=== PATIENT | female | born 1960 | race Caucasian/White ===

== ENCOUNTER → 2017-10-13 16:23 | Outpatient (REF) | payer OTHER, MEDICARE, SELFPAY ==
[2017-10-13 16:35] LABS: Basophils % 0.5 % (0.1-2.0); Eosinophils # 0.3 K/mm3 (0.0-0.4); Eosinophils % 3.5 % (0.1-12.0); Hematocrit 41.8 % (37.0-47.0); Hemoglobin 14.2 g/dL (12.2-16.2); Lymphocytes # 2.4 K/mm3 (0.7-4.5); Lymphocytes % 31.9 K/mm3 (10-50); Mean Corpuscular Hemoglobin 28.4 pg (27.0-31.2); Mean Corpuscular Volume 83.6 fl (81-99); Mean Platelet Volume 6.9 fl (7.4-10.4); Monocytes # 0.6 K/mm3 (0.1-1.0); Monocytes % 8.6 % (1.7-9.3); Neutrophils # 4.1 K/mm3 (1.8-7.8); Neutrophils % 55.5 % (37.0-80.0); Platelet Count 367 K/mm3 (142-424); Red Cell Distribution Width 13.2 % (11.5-17.5); White Blood Count 7.3 K/mm3 (4.8-10.8)
[2017-10-13 20:07] LABS: Alanine Aminotransferase 49 U/L (12-78); Albumin Level 3.6 gm/dL (3.4-5.0); Alkaline Phosphatase 108 U/L (46-116); Anion Gap 13.5 mEq/L (5-15); Aspartate Amino Transferase 22 U/L (15-37); Bilirubin,Total 0.7 mg/dL (0.2-1.0); Blood Urea Nitrogen 11 mg/dL (7-18); Calcium 9.3 mg/dL (8.5-10.1); Carbon Dioxide 27 mmol/L (21.0-32.0); Chloride 105 mmol/L (98-107); Estimated Glomerular Filt Rate 57 ml/min (>60); GFR (African American) 69 ML/MIN (>60); Globulin 3.7 gm/dl (1.3-3.2); Glucose 96 mg/dL (74-106); Potassium 4.5 mmoL/L (3.5-5.1); Sodium 141 mmol/L (136-145); Thyroid Stimulating Hormone 3.29 uIU/ml (0.358-3.740); Total Protein,Serum 7.3 gm/dL (6.4-8.2)
== END ==
LOC: LAB 16:23
PROVIDERS: Visit Provider Internal Medicine
DX: E03.9 Hypothyroidism, unspecified (principal); E55.9 Vitamin D deficiency, unspecified; E78.5 Hyperlipidemia, unspecified; M15.0 Primary generalized (osteo)arthritis; M79.7 Fibromyalgia; R25.1 Tremor, unspecified
CPT/HCPCS: 80053; 84443; 85025

== ENCOUNTER 2020-07-03 12:39 | Emergency (ER) | payer MEDICARE, OTHER, SELFPAY ==
[2020-07-03 12:40] VITALS: BP 128/54; PULSE 62; RESP 15; TEMP 37.1; O2SAT 97; BMI 39.0
--- NOTE | 2020-07-03 12:45 | ECG_ITS ---
APPROVED REPORT Exam: Resting ECG HR:67 bpm ECG Measurements Heart Rate 67 AXES RI 174 P 37 QRSd 86 QRS 23 QT 416 T 25 QTc 439 Conclusion Normal sinus rhythm Low voltage QRS Borderline ECG Electronically signed by : Carlos Eduardo Willingham, 07/03/2020 16:55:44
--- NOTE | 2020-07-03 12:53 | HMH.EDGENADL ---
ED Disposition Clinical Impression: Vasovagal syncope Disposition: Home, Self-Care Condition on Discharge: Good Instructions: DI for Syncope in Adults (Fainting) Additional Instructions: Follow-up with primary care provider. Call for appointment. Return to the emergency department if fainting returns. Referrals: Kaveh Jones [Primary Care Provider] - - Critical Care Critical Care Time: No Attestation: On , the high probability of a clinically significant, sudden or life threatening deterioration of the following system(s) required my full and direct attention, intervention and personal management. The time I documented below is in addition to time spent performing reported procedures but includes the following listed in this critical care notation. Medical Decision Making - Tutu Inquiry Pt receiving controlled substance: No Vital Signs: 07/03/20 12:40 Temperature 98.8 F Temperature Source Oral Pulse Rate [Left Radial] 62 Respiratory Rate 15 Blood Pressure [Right Arm] 128/54 L Blood Pressure Mean [Right Arm] 78 Blood Pressure Source [Right Arm] Automatic Cuff Blood Pressure Position [Right Arm] Sitting 02 Sat by Pulse Oximetry 97 Oxygen Delivery Method Room Air - Lab Data Lab Results 07/03/20 12:51: WBC 8.8, RBC 4.89, Hgb 14.1, Hct 42.0, MCV 85.8, MCH 28.9, MCHC 33.7, RDW 13.5, Plt Count 392, MPV 7.5, Neut % (Auto) 61.5, Lymph % (Auto) 26.8, [place] % (Auto) 7.9, Eos % (Auto) 3.1, Baso % (Auto) 0.6, Neut # (Auto) 5.4, Lymph # (Auto) 2.4, [place] # (Auto) 0.7, Eos # (Auto) 0.3, Baso # (Auto) 0.1 07/03/20 12:51: Sodium 138, Potassium 3.7, Chloride 103, Carbon Dioxide 27, Anion Gap 11.7, BUN 11, Creatinine 1.00, Estimated Creat Clear 104, Estimated GFR 57 L, Est GFR ( Amer) 68, Glucose 124 H, Calcium 9.5, Total Bilirubin 0.7, AST 32, ALT 27, Alkaline Phosphatase 80, Troponin I < 0.01, Total Protein 7.5, Albumin 4.7, Globulin 2.8, Albumin/Globulin Ratio 1.7 Result diagrams: 07/03/20 12:51 07/03/20 12:51 Orders (Tests/Meds): ORDERS Category Date Time Status Troponin I Q3H Lab 07/03/20 16:30 Ordered Troponin I Q3H Lab 07/03/20 19:30 Ordered - Radiology Data #1 Image(s): Chest Image Reviewed: Yes I have reviewed radiologist's interpretation PROCEDURE: XR CHEST 2V CLINICAL HISTORY: syncope COMPARISON: No exams were available for comparison FINDINGS: The cardiomediastinal silhouette and pulmonary vascularity are within normal limits. There are mild atelectatic changes in the lung bases. No acute bony abnormalities. IMPRESSION: Mild bibasilar atelectasis. Dictated by: Jorge Carlton MD 07/03/2020 14:39 Jorge Carlton MD in [place] 07/03/2020 14:39 - ECG Data Tracing #1 EKG interpreted by Odell Dupont MD: Rhythm: sinus Rate: 67 [place]: normal Ectopy: none Conduction: normal ST Segment Changes: none T Wave Changes: none Q Waves: none No evidence of acute ischemia or injury Low voltage QRS - Reevaluation(s) Time: 15:18 Reevaluation #1: Feels fine, ready to be discharged General Adult HPI - General Stated complaint: syncope Time Seen by Provider: 07/03/20 12:53 - History of Present Illness HPI narrative: Brought over from Dr. Cordoba's office for syncopal episode. The patient was there with her , who was being seen as a patient, when she began feeling hot and sweaty. She said she knows what it feels like when she is going to pass out because she has been in so many times. However, she has not had a syncopal episode for about 15 years. Her says that she passed out and was unconscious for 2 to 3 minutes. Has not recently been ill. Awakened this morning in her usual state of health. No new medications. No chest pain, no shortness of breath. States she is under a lot of stress because her recently had a stroke and now is going to have something done with his heart. - Related Data Allergies Allergy/Ad
--- NOTE | 2020-07-03 13:26 | XR_ITS ---
PROCEDURE: XR CHEST 2V CLINICAL HISTORY: syncope COMPARISON: No exams were available for comparison FINDINGS: The cardiomediastinal silhouette and pulmonary vascularity are within normal limits. There are mild atelectatic changes in the lung bases. No acute bony abnormalities. IMPRESSION: Mild bibasilar atelectasis. Dictated by: Jorge Carlton MD 07/03/2020 14:39 Jorge Carlton MD in [facility] 07/03/2020 14:39
[2020-07-03 13:32] LABS: Basophils # 0.1 K/mm3 (0-0.2); Basophils % 0.6 % (0.1-2.0); Eosinophils # 0.3 K/mm3 (0.0-0.4); Eosinophils % 3.1 % (0.1-12.0); Hemoglobin 14.1 g/dL (12.2-16.2); Lymphocytes # 2.4 K/mm3 (0.7-4.5); Lymphocytes % 26.8 % (10-50); Mean Corpuscular HGB Conc 33.7 g/dL (31.8-35.4); Mean Corpuscular Hemoglobin 28.9 pg (27.0-31.2); Mean Corpuscular Volume 85.8 fl (81-99); Mean Platelet Volume 7.5 fl (7.4-10.4); Monocytes # 0.7 K/mm3 (0.1-1.0); Monocytes % 7.9 % (1.7-9.3); Neutrophils # 5.4 K/mm3 (1.8-7.8); Neutrophils % 61.5 % (37.0-80.0); Platelet Count 392 K/mm3 (142-424); Red Blood Count 4.89 M/mm3 (4.20-5.40); Red Cell Distribution Width 13.5 % (11.5-17.5); White Blood Count 8.8 K/mm3 (4.8-10.8)
[2020-07-03 13:34] LABS: Chloride 103 mmol/L (98-107); Sodium 138 mmol/L (136-145)
[2020-07-03 13:35] LABS: Potassium 3.7 mmoL/L (3.5-5.1)
[2020-07-03 13:37] LABS: Alanine Aminotransferase 27 U/L (12-78); Albumin Level 4.7 g/dl (3.5-5.0); Albumin/Globulin Ratio 1.7 (1.1-1.8); Alkaline Phosphatase 80 U/L (38-126); Anion Gap 11.7 mEq/L (5-15); Aspartate Amino Transferase 32 U/L (14-36); Bilirubin,Total 0.7 mg/dl (0.2-1.3); Blood Urea Nitrogen 11 mg/dl (7-17); Carbon Dioxide 27 mmol/L (22.0-30.0); Creatinine Clearance Estimated 104 mL/min (50-200); Estimated Glomerular Filt Rate 57 ml/min (>60); GFR (African American) 68 ML/MIN (>60); Globulin 2.8 g/dL (1.3-3.2); Total Protein,Serum 7.5 g/dl (6.3-8.2)
[2020-07-03 13:38] LABS: Calcium 9.5 mg/dl (8.4-10.2); Glucose 124 mg/dl (74-100)
[2020-07-03 13:55] LABS: Troponin I < 0.01 ng/ml (0.00-0.034)
[2020-07-03 16:06] VITALS: BP 139/78; PULSE 78; RESP 16; TEMP 36.6; O2SAT 98
== END 2020-07-03 16:08 | disposition home or self-care (01) ==
PROVIDERS: Emergency Provider Emergency Medicine; PCP Internal Medicine
DX: R55 Syncope and collapse (principal)
CPT/HCPCS: 71046; 80053; 84484; 85025; 93005; 99282

== ENCOUNTER → 2020-07-22 15:17 | Outpatient (CLI) | payer MEDICARE, OTHER, SELFPAY | PROVIDERS: PCP Internal Medicine; Visit Provider Internal Medicine | DX: R55 Syncope and collapse (principal) | CPT/HCPCS: 93225; 93226 ==

== ENCOUNTER → 2020-07-23 07:58 | Outpatient (CLI) | payer MEDICARE, OTHER, SELFPAY ==
--- NOTE | 2020-07-23 | CA_ITS ---
APPROVED REPORT EXAM: Comprehensive 2D, Doppler, and color-flow Echocardiogram Chief Environmental Commitment Officer: Nia Galarza RT(R) Ht: 5 ft 6 in Wt: 240lbs BSA: 2.16 BP: 128/54 mmHg Indications: Syncope, CP, murmur, fatigue, left LE edema, SOB, obesity 2D Dimensions LVOT 1.93 cm (M/F) 1.5-2.5 LA Volume 26.70 mL LA Volume Index 12.36 mL/m2 (M/F) 16-34 M-Mode Dimensions RVDd 2.10 cm (0.9-2.6) LA Diam 3.41 cm (1.9-4.0) LVDd 4.37 cm (3.5-5.7) Ao Diam 2.02 cm (2.0-3.7) LVDs 3.12 cm (3.5-5.7) IVSd 0.98 cm (0.6-1.1) PWd 0.76 cm (0.6-1.1) EF (Teich) 55.40% FS 28.60% EDV (Teich) 86.30 mL ESV (Teich) 38.50 mL LV Diastology E Decel Time 167.00 (160-240 msec) E/A Ratio 1.2 MED E' 8.10 (< 7 cm/sec) E'/MED E' Ratio 10.81 (>14) LAT E' 10.00 (<10 cm/sec) E/LAT E' Ratio 8.76 (>14) Mitral Valve MV E Max Ghanshyam. 88.00 (40-130 cm/s) MV A Velocity 73.00 (40-130 cm/s) E/A Ratio 1.19 MV Decel. Time 167.00 (160-240 ms) MV PHT 49.00 ms Left Ventricle Left atrium is mildly enlarged, left ventricle is normal size, mild concentric left ventricular hypertrophy, visually estimated ejection fraction 55% with no regional wall motion abnormality, grade 1 diastolic dysfunction seen without tissue Doppler evidence of raise left atrial pressure. Right Ventricle Right atrium and right ventricle are mildly enlarged with normal contractility. Aortic Valve Aortic valve is minimally thickened and fibrosed, there is no aortic stenosis or aortic insufficiency. Mitral Valve Mitral valve is grossly normal, there is mild mitral regurgitation. Tricuspid Valve Tricuspid grossly normal, there is mild tricuspid regurgitation, tricuspid regurgitation jet velocity is inadequate for calculation of the right ventricular systolic pressure. Pulmonic Valve Pulmonic valve is poorly visualized. Great Vessels Aortic root is normal size. Pericardium No significant pericardial effusion noted. Conclusion 1. Biatrial enlargement, normal left ventricular size, mild concentric left ventricular hypertrophy, visually estimated ejection fraction 55% with no regional wall motion abnormality, grade 1 diastolic dysfunction seen without tissue Doppler evidence of raise left atrial pressure. 2. Mildly enlarged right ventricle with normal contractility. 3. Mild mitral and tricuspid regurgitation. 4. No significant pericardial effusion noted. Electronically signed by : Clint Mejia, 07/23/2020 19:00:55
== END ==
PROVIDERS: PCP Internal Medicine; Visit Provider Internal Medicine
DX: R55 Syncope and collapse (principal)
CPT/HCPCS: 93306

== ENCOUNTER → 2020-12-30 09:41 | Outpatient (CLI) | payer MEDICARE, OTHER, SELFPAY ==
[2020-12-30 18:30] LABS: Basophils % 0.5 % (0.1-2.0); Eosinophils # 0.2 K/mm3 (0.0-0.4); Eosinophils % 2.6 % (0.1-12.0); Hematocrit 43.2 % (37.0-47.0); Lymphocytes # 2.1 K/mm3 (0.7-4.5); Lymphocytes % 25.1 % (10-50); Mean Corpuscular HGB Conc 32.4 g/dL (31.8-35.4); Mean Corpuscular Hemoglobin 29.9 pg (27.0-31.2); Mean Corpuscular Volume 92.2 fl (81-99); Mean Platelet Volume 9.2 fl (7.4-10.4); Monocytes # 0.6 K/mm3 (0.1-1.0); Monocytes % 7.4 % (1.7-9.3); Neutrophils # 5.4 K/mm3 (1.8-7.8); Neutrophils % 64.4 % (37.0-80.0); Platelet Count 394 K/mm3 (142-424); Red Blood Count 4.69 M/mm3 (4.20-5.40); Red Cell Distribution Width 13.6 % (11.5-17.5); White Blood Count 8.3 K/mm3 (4.8-10.8)
[2020-12-30 20:40] LABS: Chloride 101 mmol/L (98-107); Potassium 4.2 mmoL/L (3.5-5.1); Sodium 141 mmol/L (136-145)
[2020-12-30 20:43] LABS: Alanine Aminotransferase 14 U/L (12-78); Albumin Level 4.1 g/dl (3.5-5.0); Albumin/Globulin Ratio 1.2 (1.1-1.8); Alkaline Phosphatase 108 U/L (38-126); Anion Gap 14.2 mEq/L (5-15); Aspartate Amino Transferase 23 U/L (14-36); Bilirubin,Total 0.5 mg/dl (0.2-1.3); Blood Urea Nitrogen 11 mg/dl (7-17); Calcium 9.1 mg/dl (8.4-10.2); Carbon Dioxide 30 mmol/L (22.0-30.0); Chol/HDL Ratio 4.1 (1-3.5); Cholesterol 230 mg/dl (140-200); Estimated Glomerular Filt Rate 64 ml/min (>60); GFR (African American) 77 ML/MIN (>60); Globulin 3.3 g/dL (1.3-3.2); Glucose 64 mg/dl (74-100); HDL Cholesterol 56 mg/dl (40-60); Total Protein,Serum 7.4 g/dl (6.3-8.2); Triglycerides 62 mg/dl (30-150); VLDL Cholesterol 12 mg/dL (0-40)
[2020-12-30 20:56] LABS: Direct LDL Cholesterol 152.59 mg/dL (100-129)
== END ==
PROVIDERS: PCP Internal Medicine; Visit Provider Internal Medicine
DX: R07.9 Chest pain, unspecified (principal); E03.9 Hypothyroidism, unspecified; E78.5 Hyperlipidemia, unspecified; E55.9 Vitamin D deficiency, unspecified; K22.70 Barrett's esophagus without dysplasia; M79.7 Fibromyalgia
CPT/HCPCS: 80053; 80061; 84443; 85025; 93005

== ENCOUNTER → 2021-01-22 12:14 | Outpatient (CLI) | payer MEDICARE, OTHER, SELFPAY ==
--- NOTE | 2021-01-22 | CA_ITS ---
APPROVED REPORT Exam: Pharmacologic Technologist: Lorena White Ht: 5 ft 6 in Wt: 238 lbs BSA: 2.15 m2 HR: 65 bpm BP: 140/91 mmHg Indications: Chest pain, dizziness, syncope Medical History Medications: Propranolol,,,,, Pantoprazole,,,,, MoRPHINE,,,,, Cyclobenzaprine,,,,, Nitroglycerin,,,,, Lysine,,,,, Stress Test Details Test: LEXISCAN HR Resting HR: 63 bpm Max Heart Rate (APMHR): 159 bpm Max HR Achieved: 90 bpm Target HR (85% APMHR): 135 bpm % of APMHR: 56 Recovery HR: 73 bpm BP Resting BP: 140.0/91.0 mmHg Max BP: 140.0/91.0 mmHg Recovery BP: 115.0/73.0 mmHg ECG Resting ECG: Normal sinus rhythm, low voltage QRS Clinical Exercise duration: 04:00 min Highest Stage Achieved: Stress ECG Conclusion Symptoms: Shortness of air, stomach cramps. No chest pain Arrhythmias/Ectopy: Transient episode of wide complex rhythm at 60 bpm, probable AIVR. ST-T Changes: No significant changes. Conclusion: AIVR during Lexiscan stress that may be ischemic related. Myoview images reported separately. Electronically signed by : Clint Mejia MD 01/22/2021 20:09:34
--- NOTE | 2021-01-22 12:14 | NM_ITS ---
APPROVED REPORT Exam: Nuclear Stress Test Indication: Chest pain, SOB, Palpitations, Syncope, Family history Patient Location: Outpatient Stress Tech: Lorena White NM Tech:Sarahy Key, ARRT, RT (R)(N) Ht: 5 ft 6 in Wt: 234 lbs Bra Size: C HR: 63 bpm BP: 140/91 mmHg BSA: 2.14 m2 BMI: 37.7 History: Chest pain, SOB, Palpitations, Syncope, Family history Procedure: Patient received a 0.4 mg of intravenous Lexiscan, resting heart rate 63 bpm, resting blood pressure 140/91 mmHg, with Lexiscan maximum heart rate achived was 90 bpm which is Less than 85 % of the maximum predicted heart rate and blood pressure was 140/91 mmHg. With Lexiscan, patient denied any complaint of chest pain. Electrocardiogram Resting electrocardiogram shows sinus rhythm, with Lexiscan there is less than 1.[address] segment depression noted from the baseline EKG. The EKG portion of Lexiscan is nondiagnostic. Cardiac Stress and Resting SPECT Images: Cardiac Stress and Resting SPECT images were obtained using technetium 99m Myoview 32.1 mCi stress and 10.44 mCi at rest. Gated SPECT for analysis of segmental wall motion and calculation of the ejection fraction also done. Cardiac stress and resting SPECT images show uniform myocardial activity without segmental perfusion abnormality, computer ejection fraction is over 65% with no regional wall motion abnormality, however there is transient ischemic dilatation of the left ventricle seen. Conclusion: 1. The EKG portion of the Lexiscan Myoview is nondiagnostic. 2. No scintigraphic evidence of reversible ischemia seen, computer derived ejection fraction is over 65% with no regional wall motion abnormality, right ventricle is normal size and contractility, there is transient ischemic dilatation of the left ventricle seen, raising the concerns for presence of balanced ischemia, other causes for transient ischemic dilatation includes hypertensive heart disease, diastolic dysfunction, microvascular disease and diabetes. Clinical correlation is recommended. 3. Abnormal Lexiscan Myoview study. Electronically signed by : Clint Mejia MD 01/22/2021 21:55:28
--- NOTE | 2021-01-22 14:01 | HMH.ITSHM ---
Current Home Medications as stated by this patient Maria Del Rosario Florian or development representative. []PROPRANOLOL PANTOPRAZOLE NITRO MORPHINE LYSINE CYCLOBENZAPRINE
== END ==
PROVIDERS: PCP Internal Medicine; Visit Provider Urology
DX: M54.9 Dorsalgia, unspecified (principal); R00.2 Palpitations; R07.89 Other chest pain; R55 Syncope and collapse; Z82.49 Family history of ischemic heart disease and other diseases of the circulatory system
CPT/HCPCS: 78452; 93017; A9502; J2785

== ENCOUNTER → 2021-02-06 07:01 | Outpatient (CLI) | payer MEDICARE, OTHER, SELFPAY ==
--- NOTE | 2021-02-06 07:31 | CT_ITS ---
PROCEDURE: CT ANGIO CORONARY ARTERY CLINCAL INDICATION: typical angina/abnl myoview COMPARISON: No exams were available for comparison TECHNIQUE: IV Contrast: 75ml Isovue 370 Gated enhanced axial images obtained with sagittal and coronal reformats. All CT scans at the facility use one or more dose reduction, viz: automated exposure control, ma/kV adjustment per patient size (including targeted exams where dose is matched to indication, i.e. head), or iterative reconstruction technique. The the patient's resting heart rate was in the mid 60s therefore, no medication bradycardia was utilized. FINDINGS: Coronary artery calcium score is 53 indicating mild plaque burden with moderate cardiovascular disease risk. There is some mild motion artifact somewhat obscuring fine detail mid and distal vessels. Left main coronary artery has an unremarkable appearance. There is a small amount of eccentric calcific plaque involving the LAD just distal to the 1st diagonal this does not appear to be causing significant stenosis. Eccentric calcific plaque is also present involving the proximal aspect of the circumflex with less than 50 percent stenosis. There does appear to be an irregular stenotic lesion just distal to the ostium of the RCA. This is somewhat difficult to determine the degree of stenosis but is felt to be greater than 50 percent.. The area of stenosis is shelf-like in nature. There are mild atelectatic or fibrotic changes in the lung bases. There is a small hiatal hernia. IMPRESSION: 1. Eccentric plaque involving the mid LAD and proximal circumflex without significant stenosis. 2. Short segment stenosis involving the proximal aspect of the RCA just distal to the ostium. This stenosis is felt to be greater than 50 percent. 3. Mild calcific plaque burden with moderate cardiovascular disease risk 4. Small hiatal hernia Dictated by: Jorge Carlton MD 02/10/2021 09:56 Jorge Carlton MD in [facility] 02/10/2021 09:56
[2021-02-06 08:16] VITALS: BMI 38.0
[2021-02-06 08:36] LABS: Blood Urea Nitrogen 10 mg/dl (7-17); Creatinine Clearance Estimated 100 mL/min (50-200); Estimated Glomerular Filt Rate 56 ml/min (>60); GFR (African American) 68 ML/MIN (>60)
== END ==
PROVIDERS: PCP Internal Medicine; Visit Provider Physician Assistant
DX: I20.9 Angina pectoris, unspecified (principal); R07.9 Chest pain, unspecified; R94.30 Abnormal result of cardiovascular function study, unspecified
CPT/HCPCS: 75574; 82565; 84520; Q9967

== ENCOUNTER → 2021-02-18 08:32 | Outpatient (CLI) | payer MEDICARE, OTHER, SELFPAY ==
[2021-02-18 08:58] LABS: Basophils # 0.1 K/mm3 (0-0.2); Basophils % 0.7 % (0.1-2.0); Eosinophils # 0.4 K/mm3 (0.0-0.4); Eosinophils % 3.8 % (0.1-12.0); Hematocrit 42.5 % (37.0-47.0); Hemoglobin 14.7 g/dL (12.2-16.2); Lymphocytes # 2.6 K/mm3 (0.7-4.5); Lymphocytes % 29.2 % (10-50); Mean Corpuscular HGB Conc 34.5 g/dL (31.8-35.4); Mean Corpuscular Hemoglobin 30.1 pg (27.0-31.2); Mean Corpuscular Volume 87.2 fl (81-99); Mean Platelet Volume 7.7 fl (7.4-10.4); Monocytes # 0.9 K/mm3 (0.1-1.0); Monocytes % 9.5 % (1.7-9.3); Neutrophils # 5.1 K/mm3 (1.8-7.8); Neutrophils % 56.8 % (37.0-80.0); Platelet Count 351 K/mm3 (142-424); Red Blood Count 4.87 M/mm3 (4.20-5.40); Red Cell Distribution Width 12.8 % (11.5-17.5)
[2021-02-18 10:36] LABS: Chloride 102 mmol/L (98-107); Sodium 140 mmol/L (136-145)
[2021-02-18 10:39] LABS: Blood Urea Nitrogen 14 mg/dl (7-17); Calcium 9.1 mg/dl (8.4-10.2); Carbon Dioxide 29 mmol/L (22.0-30.0); Estimated Glomerular Filt Rate 56 ml/min (>60); GFR (African American) 68 ML/MIN (>60); Glucose 82 mg/dl (74-100)
== END ==
PROVIDERS: Visit Provider Physician Assistant
DX: I20.8 Other forms of angina pectoris (principal); M54.9 Dorsalgia, unspecified; R00.2 Palpitations; R07.9 Chest pain, unspecified; R55 Syncope and collapse; Z82.49 Family history of ischemic heart disease and other diseases of the circulatory system; Z01.812 Encounter for preprocedural laboratory examination; Z11.52 Encounter for screening for COVID-19
CPT/HCPCS: 36415; 80048; 85025; C9803; U0003; U0005

== ENCOUNTER 2021-02-19 09:04 | Day surgery (SDC) | payer MEDICARE, OTHER, SELFPAY ==
[2021-02-19] VITALS (13 sets, daily range): BP systolic 97–135; BP diastolic 60–75; PULSE 59–81; RESP 12–18; TEMP 36.6–36.7; O2SAT 93–99; BMI 38.2
--- NOTE | 2021-02-19 07:06 | IR_ITS ---
APPROVED REPORT Patient Location: Outpatient Tractor Operator: MART Hayden RT (R) PROCEDURES Left heart catheterization Left ventriculogram Selective coronary angiogram INDICATION Coronary artery disease, Abnormal CAT scan with right coronary stenosis Informed consent was obtained prior to the procedure. COMPLICATIONS NONE Estimated Blood Loss: LESS THAN 10 ML TECHNIQUE One percent lidocaine used to anesthetize the right anterior aspect of the wrist. The right radial artery was accessed via the Seldinger technique. A 6 Burmese sheath was placed in the right radial artery. 2.5 mg of verapamil, 800 mcg of nitroglycerin, 1mg Lidocaine and 5000 U Heparin were given through the arterial sheath. The Poppa catheter was also used to perform left heart catheterization, left ventriculogram and selective coronary angiogram. At the end of the procedure the sheath was removed good hemostasis was achieved using Traclet band, patient was transferred to the postop holding area in stable condition. ANGIOGRAPHIC RESULTS The left main artery Normal The left anterior descending artery Mild diffuse 10% luminal irregularities The circumflex artery Mild diffuse 10% luminal irregularities The right coronary artery Dominant mild 10% luminal irregularities The ABBOTT ventriculogram reveals Normal 65% The left ventricular end-diastolic pressure 15 mmHg IMPRESSION Mild nonflow limiting occlusive disease Normal ejection fraction Borderline LVEDP PLAN 1. Medical management Electronically signed by : Castro Cordoba MD 02/19/2021 11:10:19
== END 2021-02-19 15:04 | disposition home or self-care (01) ==
LOC: CATHLAB 09:06
PROVIDERS: PCP Internal Medicine; Visit Provider Internal Medicine
DX: I25.118 Atherosclerotic heart disease of native coronary artery with other forms of angina pectoris (principal); R07.9 Chest pain, unspecified; R55 Syncope and collapse; Z82.49 Family history of ischemic heart disease and other diseases of the circulatory system; E03.9 Hypothyroidism, unspecified
CPT/HCPCS: 93458; 99152; C1725; C1769; J1644; Q9967

== ENCOUNTER → 2021-03-05 13:00 | Outpatient (CLI) | payer MEDICARE, OTHER, SELFPAY ==
[2021-03-05 14:59] LABS: Thyroid Stimulating Hormone 2.68 uIU/mL (0.465-4.68)
== END ==
PROVIDERS: Visit Provider Internal Medicine
DX: E03.9 Hypothyroidism, unspecified (principal); M15.0 Primary generalized (osteo)arthritis; M79.7 Fibromyalgia; K22.70 Barrett's esophagus without dysplasia; E55.9 Vitamin D deficiency, unspecified
CPT/HCPCS: 84443

== ENCOUNTER → 2021-06-11 16:24 | Outpatient (CLI) | payer MEDICARE, OTHER, SELFPAY ==
--- NOTE | 2021-06-11 | CA_ITS ---
FINAL REPORT TECHNIQUE: Ultrasound images of the deep venous system were obtained from the left groin to the calf veins. CLINICAL HISTORY: HTN, HLD, edema x 4 months in medial ankle area, pain has been in distal calf and extending up to medial knee since 06/08/21. Denies trauma. FINDINGS: The deep venous system is normally compressible. Normal flow is identified. IMPRESSION: No evidence of left lower extremity DVT. Reviewed, Interpreted and Dictated by Tho Lemon MD Transcribed by Betty Wan Authenticated by Tho Lemon MD on 06/12/2021 08:48:03 AM [facility]
== END ==
PROVIDERS: PCP Internal Medicine; Visit Provider Internal Medicine
DX: M79.605 Pain in left leg (principal); M79.89 Other specified soft tissue disorders
CPT/HCPCS: 93971

== ENCOUNTER → 2021-10-07 11:42 | Outpatient (CLI) | payer MEDICARE, OTHER, SELFPAY ==
--- NOTE | 2021-10-07 11:47 | XR_ITS ---
FINAL REPORT CLINICAL HISTORY: LEFT FOOT PAIN, bruising, no known injury FINDINGS: Left foot Three views were obtained. There is no acute fracture or dislocation. There is a small plantar calcaneal spur. Mild degenerative changes are present. No soft tissue abnormality is identified. IMPRESSION: No acute process. Reviewed, Interpreted and Dictated by Drew Oreilly III, MD Transcribed by Betty Wan Authenticated and [facility]
== END ==
PROVIDERS: PCP Internal Medicine; Visit Provider Internal Medicine
DX: M79.672 Pain in left foot (principal)
CPT/HCPCS: 73630

== ENCOUNTER → 2022-03-03 16:42 | Outpatient (CLI) | payer MEDICARE, OTHER, SELFPAY ==
[2022-03-03 17:34] LABS: Basophils # 0.1 K/mm3 (0-0.2); Basophils % 0.7 % (0.1-2.0); Eosinophils # 0.2 K/mm3 (0.0-0.4); Eosinophils % 2.2 % (0.1-12.0); Hematocrit 39.8 % (37.0-47.0); Hemoglobin 13.5 g/dL (12.2-16.2); Lymphocytes # 1.8 K/mm3 (0.7-4.5); Lymphocytes % 26.3 % (10-50); Mean Corpuscular HGB Conc 33.9 g/dL (31.8-35.4); Mean Corpuscular Hemoglobin 29.5 pg (27.0-31.2); Mean Corpuscular Volume 87.2 fl (81-99); Mean Platelet Volume 8.4 fl (7.4-10.4); Monocytes # 0.5 K/mm3 (0.1-1.0); Neutrophils # 4.3 K/mm3 (1.8-7.8); Neutrophils % 62.9 % (37.0-80.0); Platelet Count 353 K/mm3 (142-424); Red Blood Count 4.56 M/mm3 (4.20-5.40); Red Cell Distribution Width 13.1 % (11.5-17.5); White Blood Count 6.8 K/mm3 (4.8-10.8)
[2022-03-03 19:06] LABS: Alanine Aminotransferase 22 U/L (12-78); Albumin Level 4.3 g/dl (3.5-5.0); Albumin/Globulin Ratio 1.6 (1.1-1.8); Alkaline Phosphatase 99 U/L (38-126); Anion Gap 13.1 mEq/L (5-15); Aspartate Amino Transferase 29 U/L (14-36); Bilirubin,Total 0.7 mg/dl (0.2-1.3); Blood Urea Nitrogen 17 mg/dl (7-17); Calcium 9.2 mg/dl (8.4-10.2); Carbon Dioxide 27 mmol/L (22.0-30.0); Chloride 104 mmol/L (98-107); Chol/HDL Ratio 3.3 (1-3.5); Cholesterol 168 mg/dl (140-200); Estimated Glomerular Filt Rate 56 ml/min (>60); GFR (African American) 68 ML/MIN (>60); Globulin 2.7 g/dL (1.3-3.2); Glucose 90 mg/dl (74-100); HDL Cholesterol 51 mg/dl (40-60); Potassium 4.1 mmoL/L (3.5-5.1); Sodium 140 mmol/L (136-145); Triglycerides 67 mg/dl (30-150); VLDL Cholesterol 13 mg/dL (0-40)
[2022-03-03 19:17] LABS: Direct LDL Cholesterol 88.84 mg/dL (100-129)
[2022-03-03 19:36] LABS: Thyroid Stimulating Hormone 1.34 uIU/mL (0.465-4.68)
== END ==
PROVIDERS: PCP Internal Medicine; Visit Provider Internal Medicine
DX: E03.9 Hypothyroidism, unspecified (principal); E78.5 Hyperlipidemia, unspecified; M79.7 Fibromyalgia; R25.1 Tremor, unspecified; K22.70 Barrett's esophagus without dysplasia; M15.0 Primary generalized (osteo)arthritis; I87.2 Venous insufficiency (chronic) (peripheral)
CPT/HCPCS: 80053; 80061; 84443; 85025

== ENCOUNTER → 2022-08-12 10:46 | Outpatient (CLI) | payer MEDICARE, OTHER, SELFPAY ==
--- NOTE | 2022-08-12 10:50 | MM_ITS ---
PROCEDURE INFORMATION: Exam: MG Bilateral Screening 3D Mammography Exam date and time: 08/12/2022 10:48 AM Age: 62 years old Clinical indication: Screening examination TECHNIQUE: Imaging protocol: Bilateral Screening tomosynthesis and 2D mammography including computer-aided detection (CAD) when performed. COMPARISON: 1. MG DMSB DIG MAMM-SCREEN VIANNEY 02/18/2016 11:14 AM 2. MG DMSB DIG MAMM-SCREEN VIANNEY 11/28/2014 11:26 AM FINDINGS: MAMMOGRAPHY: Breast composition: There are scattered areas of fibroglandular density. Mass: None. Architectural distortion: None. Calcifications: No suspicious calcifications. Asymmetric density: None. Skin thickening: None. Axillary adenopathy: None. IMPRESSION: No mammographic evidence of malignancy. Annual screening is recommended unless otherwise clinically indicated. ASSESSMENT: BI-RADS Category 1: Negative
== END ==
PROVIDERS: PCP Internal Medicine; Visit Provider Internal Medicine
DX: Z12.31 Encounter for screening mammogram for malignant neoplasm of breast (principal)
CPT/HCPCS: 77063; 77067

== ENCOUNTER 2023-02-21 12:49 | Emergency (ER) | payer MEDICARE, OTHER, SELFPAY ==
[2023-02-21 12:51] VITALS: BP 112/68; PULSE 91; RESP 16; TEMP 36.9; O2SAT 96; BMI 35.5
--- NOTE | 2023-02-21 12:54 | PC.NURSE ---
Dr. Montes at [facility] for pt eval
--- NOTE | 2023-02-21 13:06 | HMH.EDGENADL ---
Discharge Plan Disposition Patient Disposition: Home, Self-Care Prescriptions Prescriptions: New amoxicillin-pot clavulanate 875-125 mg tablet 1 tab PO BID 10 Days Qty: 20 0RF No Action Restasis 0.05 % dropperette 1 drp OPHTHALMIC BID Ubrelvy 100 mg tablet 100 mg PO ONCE thyroid (pork) [TECHNICAL SERVICES REP Thyroid] 60 mg tablet 60 mg PO DAILY nitroglycerin 0.4 mg tablet, sublingual 0.4 mg SUBLINGUAL ONCE PRN (Reason: *) pantoprazole 40 mg tablet,delayed release (DR/EC) 40 mg PO DAILY propranolol 160 mg capsule,extended release 24 hr 160 mg PO DAILY morphine 15 mg tablet extended release 15 mg PO BID lysine 500 mg tablet 500 mg PO DAILY PRN (Reason: *) cyclobenzaprine 5 mg tablet 5 mg PO BID atorvastatin 10 mg tablet 10 mg PO DAILY Qty: 90 3RF Referrals Follow up/Referrals: Kaveh Jones MD [Primary Care Provider] - See instructions Activity Restrictions/Add. Instructions Additional Instructions/Restrictions: As discussed the Augmentin prescription according to Reqlut lalo should be $9. Please discuss this with Jc as you had concerns about your insurance covering this drug. You have evidence of necrotic dental caries with associated facial cellulitis and need to follow-up with a dentist as soon as possible. Clinical Impressions Clinical Impression: Infected dental caries, Cellulitis diffuse, face Discharge ED Provider: Alxe Montes General Adult HPI General Chief complaint: Dental/Oral Stated complaint: facial swelling Time Seen by Provider: 02/21/23 12:54 Mode of Arrival: Ambulatory Source of Information: Patient Limitations: No Limitations Description of Symptoms (Recalled from ER Triage Doc. by RN): Presents to ED with c/o dental pain and headache with right facial swelling since last night. Patient denies meds or fever SONG PLUGGER. PMH: Fibromyalgia History of Present Illness HPI narrative: Patient is a 62-year-old female with a history of fibromyalgia and headaches presenting today with dental pain and right facial swelling. States that her headaches are consistent with migraine she has had in the past but she has had dental pain and slight up to today and she has not seen a dentist recently. The reason she came to the emergency department is the swelling associated the side of her face on the right side. No fevers or chills. Related Data Home Medications Medication Instructions Recorded Confirmed cyclobenzaprine 5 mg tablet 5 mg PO BID muscle spasms 01/13/21 03/05/21 lysine 500 mg tablet 500 mg PO DAILY PRN * 01/13/21 03/05/21 morphine 15 mg tablet,extended 15 mg PO BID Pain 01/13/21 03/05/21 release nitroglycerin 0.4 mg sublingual 0.4 mg sublingual ONCE PRN * 01/13/21 03/05/21 tablet pantoprazole 40 mg tablet,delayed 40 mg PO DAILY * 01/13/21 03/05/21 release propranolol 160 mg capsule,24 160 mg PO DAILY bp 01/13/21 03/05/21 hr,extended release thyroid (pork) 60 mg tablet (TECHNICAL SERVICES REP 60 mg PO DAILY * 01/13/21 03/05/21 Thyroid) cyclosporine 0.05 % eye drops in a 1 drp ophthalmic (eye) BID dry eyes 01/28/21 03/05/21 dropperette (Restasis) ubrogepant 100 mg tablet (Ubrelvy) 100 mg PO ONCE 03/05/21 03/05/21 Previous Rx's Medication Instructions Recorded atorvastatin 10 mg tablet 10 mg PO DAILY #90 ea 05/01/22 amoxicillin 875 mg-potassium 1 tab PO BID 10 days #20 tabs 02/21/23 clavulanate 125 mg tablet Allergies Allergy/AdvReac Type Severity Reaction Status Date / Time escitalopram [From Lexapro] Allergy Intermediate PALPITATION Verified 03/05/21 13:39 S latex Allergy Intermediate I-RASH Verified 03/05/21 13:39 phenazopyridine Allergy Intermediate SWELLING Verified 03/05/21 13:39 [From Pyridium] polyethylene glycol Allergy Intermediate HOT Verified 03/05/21 13:39 FLASHES acesulfame AdvReac Mild HEADACHE Verified 03/05/21 13:39 acetaminophen [From Percocet] AdvReac Mild SHAKES Verified 03/05/21 13:39 acyclo
[2023-02-21 13:11] VITALS: BP 112/68; PULSE 81; RESP 16; TEMP 36.9; O2SAT 97
== END 2023-02-21 13:13 | disposition home or self-care (01) ==
LOC: ER 13:07
PROVIDERS: Emergency Provider Student in an Organized Health Care Education/Training Program; PCP Internal Medicine
DX: L03.211 Cellulitis of face (principal); R51.9 Headache, unspecified; I25.118 Atherosclerotic heart disease of native coronary artery with other forms of angina pectoris
CPT/HCPCS: 99283

== ENCOUNTER 2023-04-05 14:50 | Outpatient (RCR) | payer MEDICARE, OTHER, SELFPAY | END 2023-04-05 16:00 | disposition home or self-care (01) | LOC: PT 14:50 | PROVIDERS: PCP Internal Medicine; Visit Provider Internal Medicine | DX: M54.2 Cervicalgia (principal); M54.12 Radiculopathy, cervical region; M25.511 Pain in right shoulder; M79.601 Pain in right arm | CPT/HCPCS: 97010; 97014; 97110; 97163; G0283 ==

== ENCOUNTER 2023-04-18 18:25 | Emergency (ER) | payer MEDICARE, OTHER, SELFPAY ==
[2023-04-18 18:45] VITALS: BP 134/95; PULSE 87; RESP 19; TEMP 36.8; O2SAT 97; BMI 33.9
--- NOTE | 2023-04-18 19:26 | EXP.UTC ---
Discharge Plan Disposition Patient Disposition: Home, Self-Care Condition: Good Prescriptions Prescriptions: New ondansetron 4 mg tablet,disintegrating 4 mg PO Q8H PRN (Reason: nausea and vomiting) Qty: 10 0RF No Action Restasis 0.05 % dropperette 1 drp OPHTHALMIC BID Ubrelvy 100 mg tablet 100 mg PO ONCE thyroid (pork) [SPOOL CLEANER HAND Thyroid] 60 mg tablet 60 mg PO DAILY nitroglycerin 0.4 mg tablet, sublingual 0.4 mg SUBLINGUAL ONCE PRN (Reason: *) pantoprazole 40 mg tablet,delayed release (DR/EC) 40 mg PO DAILY propranolol 160 mg capsule,extended release 24 hr 160 mg PO DAILY morphine 15 mg tablet extended release 15 mg PO BID lysine 500 mg tablet 500 mg PO DAILY PRN (Reason: *) cyclobenzaprine 5 mg tablet 5 mg PO BID atorvastatin 10 mg tablet 10 mg PO DAILY Qty: 90 3RF Referrals Follow up/Referrals: Kaveh Jones MD [Primary Care Provider] - See instructions Activity Restrictions/Add. Instructions Additional Instructions/Restrictions: Drink extra fluids with and between meals. If you have difficulty drinking, try very small amounts of water or suck on ice chips. ? Avoid fruit juices, as these do not replace minerals and can actually increase diarrhea. ? Children and adults can use sports drinks to replenish electrolytes. Younger children and infants should use products formulated for children, like oral rehydration solutions. ? Eat food in small amounts and let your stomach recover. ? Get lots of rest. You may feel tired or weak. ? No greasy or fried foods for the next 24-48 hours BRAT diet Bananas Rice Apples and [place] ? Make sure to drink plenty of liquids ? Return if needed ? Straight to ER if any life threatening symptoms ? Zofran as prescribed ? You was given an outpatient order for diarrhea panel, please collect specimen and bring back to outpatient lab then call back to the [facility] or follow up with family doctor for results ? Follow up with family doctor in the next 48-72 hours if no improvement or any worsening of symptoms Clinical Impressions Clinical Impression: Nausea vomiting and diarrhea Instructions Patient Instructions: Diarrhea, Nausea and Vomiting-Adult Discharge ED Provider: Dinorah Guerrero [facility] HPI General Stated complaint: flushing, sweating Mode of Arrival: Ambulatory Source of Information: Patient Limitations: No Limitations Time Seen by Provider: 04/18/23 19:26 Description of Symptoms (Recalled from Triage Doc. by RN): Pt's symptoms are flushing, chills, diarrhea, and vomiting, feels like she is going to pass out. This has been going on for 2 weeks. HEENT Symptoms (Recalled from RN notes): Yes Resp Symptoms (Recalled from RN notes): No Skin Symptoms (Recalled from RN notes): No MS Symptoms (Recalled from RN notes): No Functional Status (Recalled from RN notes): n/a History of Present Illness Provider Complaint: Patient states that she has a hx of fibromyalgia and had been getting trigger point injections States that she has been having flushing of her face and chest for a couple of weeks States that she has bad anxiety and a couple of times she felt like she was going to pass out States since then she has started with N/V/D chills and feeling achy all over States that she hasnt had any fever or anything that she knows of and she was worried because her has severe health issues so she wanted to get checked Related Data Home Medications Medication Instructions Recorded Confirmed cyclobenzaprine 5 mg tablet 5 mg PO BID muscle spasms 01/13/21 03/05/21 lysine 500 mg tablet 500 mg PO DAILY PRN * 01/13/21 03/05/21 morphine 15 mg tablet,extended 15 mg PO BID Pain 01/13/21 04/18/23 release nitroglycerin 0.4 mg sublingual 0.4 mg sublingual ONCE PRN * 01/13/21 04/18/23 tablet pantoprazole 40 mg tablet,delayed 40 mg PO DAILY * 01/13/21 04/18/23 release propranolol 160 mg capsule,24 160 mg PO DAILY bp 01/13/21 04/18/23 hr,extended release thyroid (pork) 60 mg tablet (SPOOL CLEANER HAND 60 mg PO DAILY * 01/13/21 04/18/23 Thyroid) cyclosporine 0.05 % eye drops in a 1 drp ophthalmic (eye) BID dry eyes 01/28/21 04/18/23 dropperette (Restasis) ubrogepant 100 mg tablet (Ubrelvy) 100 mg PO ONCE 03/05/21 04/18/23 Previous Rx's Medication Instructions Recorded atorvastatin 10 mg tablet 10 mg PO DAILY #90 ea 05/01/22 ondansetron 4 mg disintegrating 4 mg PO Q8H PRN nausea and 04/18/23 tablet vomiting #10 tabs Allergies Allergy/AdvReac Type Severity Reaction Status Date / Time escitalopram [From Lexapro] Allergy Intermediate PALPITATION Verified 04/18/23 19:00 S latex Allergy Intermediate I-RASH Verified 04/18/23 19:00 phenazopyridine Allergy Intermediate SWELLING Verified 04/18/23 19:00 [From Pyridium] polyethylene glycol Allergy Intermediate HOT Verified 04/18/23 19:00 FLASHES acesulfame AdvReac Mild HEADACHE Verified 04/18/23 19:00 acetaminophen [From Percocet] AdvReac Mild SHAKES Verified 04/18/23 19:00 acyclovir AdvReac Mild NA-NAUSEA/VOMITING, Verified 04/18/23 19:00 DIARRHEA aspartame AdvReac Mild HEADACHE Verified 04/18/23 19:00 [From ASPARTAME (FOOD/DRUG)] ciprofloxacin [From Cipro] AdvReac Mild NA-NAUSEA/V Verified 04/18/23 19:00 OMITING Corticosteroids AdvReac Mild VOMITING Verified 04/18/23 19:00 (Glucocorticoids) duloxetine [From Cymbalta] AdvReac Mild ELEVATED BP Verified 04/18/23 19:00 oxycodone [From Percocet] AdvReac Mild SHAKES Verified 04/18/23 19:00 saccharin AdvReac Mild HEADACHE Verified 04/18/23 19:00 sucralose AdvReac Mild HEADACHE Verified 04/18/23 19:00 [From SUCRALOSE (FOOD/DRUG)] From ASPARTAME (FOOD/DRUG) AdvReac Mild HEADACHE Uncoded 02/16/17 15:22 From SUCRALOSE (FOOD/DRUG) AdvReac Mild HEADACHE Uncoded 02/16/17 15:22 Worker's Comp Is this a Worker's Comp case?: No [facility] Disclaimer: The information contained in this section may have been updated after the patient was seen, as this information can be updated by other users. Medical History (Updated 04/18/23 @ 19:43 by Dinorah Guerrero APRN) Atypical angina Back pain CAD (coronary artery disease) Chest pain Family history of heart disease Palpitations Syncope Social History Smoking Status: Never smoker alcohol intake: never current occupational status: disabled Travel in the last 8 weeks: Inside the [place] caffeine: No ROS Obtained: Yes All systems reviewed & no additional complaints except as documented and Yes Systems reviewed as appropriate & no additional complaints except as documented Constitutional Constitutional: Reports system reviewed and no additional complaints, except as documented, Reports as per HPI, Reports body ache, Reports chills and Reports fatigue ENT Ears, Nose, Mouth, and Throat: Reports system reviewed and no additional complaints, except as documented, Reports as per HPI and Reports nasal congestion Cardiovascular Cardiovascular: Reports system reviewed and no additional complaints, except as documented, Reports as per HPI, Denies chest pain, Denies dyspnea and Denies edema Respiratory Respiratory: Reports system reviewed and no additional complaints, except as documented, Reports as per HPI, Denies shortness of breath and Denies dyspnea Gastrointestinal Gastrointestingal: Reports system reviewed and no additional complaints, except as documented, as per HPI, diarrhea, nausea and vomiting; Denies abdominal pain Musculoskeletal Musculoskeletal: Reports system reviewed and no additional complaints, except as documented and Reports as per HPI Integumentary/Breasts Skin/Breast: Reports system reviewed and no additional complaints, except as documented and Reports as per HPI Neurologic Neurologic: Reports system reviewed and no additional complaints, except as documented and Reports as per HPI Comments: Feeling flush on and off x 2 weeks Endocrine Endocrine: Reports fatigue Physical Exam General General appearance: alert and in no apparent distress ENT ENT exam: Present mucous membranes moist Chest Chest inspection: Present normal inspection and symmetric chest wall rise Respiratory Respiratory exam: Present normal lung sounds bilaterally; Absent respiratory distress or wheezes Cardiovascular Cardiovascular exam: Present regular rate, normal rhythm and normal heart sounds Neurological Exam Neurological exam: Present alert, oriented X3 and normal gait Medical Decision Making Tutu Inquiry Pt receiving controlled substance: No [place] was queried for this patient: No Vital Signs: 04/18/23 18:45 Temperature 98.3 F Temperature Source Oral Pulse Rate [Right Radial] 87 Respiratory Rate 19 Blood Pressure [Right Arm] 134/95 H Blood Pressure Mean [Right Arm] 108 Blood Pressure Source [Right Arm] Automatic Cuff Blood Pressure Position [Right Arm] Sitting 02 Sat by Pulse Oximetry 97 Oxygen Delivery Method Room Air Lab Data Lab results reviewed: Yes I reviewed the patient's lab results. Medical Decision Narrative: Patient denies feeling like she is going to pass out today Discussed with patient about transfer to the ED declined will do URP in the UTC today and she will follow up with her PCP tomorrow if everything negative for further evaluation and testing
[2023-04-18 20:03] LABS: Coronavirus 19, PCR Not Detected (NotDetected); Coronavirus 229E Not Detected (NotDetected); Coronavirus NL63 Not Detected (NotDetected); Coronavirus OC43 Not Detected (NotDetected); Human Metapneumovirus Not Detected (NotDetected); Influenza A, PCR Not Detected (NotDetected); Influenza AH1, 2009 Not Detected (NotDetected); Influenza AH1, PCR Not Detected (NotDetected); Influenza AH3,PCR Not Detected (NotDetected); Influenza B, PCR Not Detected (NotDetected); Parainfluenza 1, PCR Not Detected (NotDetected); Parainfluenza 2, PCR Not Detected (NotDetected); Parainfluenza 3, PCR Not Detected (NotDetected); Parainfluenza 4, PCR Not Detected (NotDetected); Respiratory Syncytial Virus Not Detected (NotDetected); Rhinovirus/Enterovirus Not Detected (NotDetected)
[2023-04-18 20:05] LABS: Adenovirus,PCR Not Detected (NotDetected); Coronovirus HKU1,PCR Not Detected (NotDetected)
[2023-04-18 20:09] VITALS: BP 134/95; PULSE 87; RESP 19; TEMP 36.8; O2SAT 97
== END 2023-04-18 20:08 | disposition home or self-care (01) ==
PROVIDERS: Emergency Provider Nurse Practitioner; PCP Internal Medicine
DX: R11.2 Nausea with vomiting, unspecified (principal); R19.7 Diarrhea, unspecified; M79.18 Myalgia, other site
CPT/HCPCS: 87632; 87635; 99204; 99212; G0463

== ENCOUNTER 2023-04-19 11:51 | Outpatient (CLI) | payer MEDICARE, OTHER, SELFPAY ==
[2023-04-19 12:07] LABS: Basophils % 0.5 % (0.1-2.0); Eosinophils # 0.1 K/mm3 (0.0-0.4); Eosinophils % 1.1 % (0.1-12.0); Hematocrit 42.5 % (37.0-47.0); Hemoglobin 14.5 g/dL (12.2-16.2); Lymphocytes # 1.9 K/mm3 (0.7-4.5); Lymphocytes % 23.8 % (10-50); Mean Corpuscular HGB Conc 34.2 g/dL (31.8-35.4); Mean Corpuscular Hemoglobin 30.8 pg (27.0-31.2); Mean Platelet Volume 8.2 fl (7.4-10.4); Monocytes # 0.6 K/mm3 (0.1-1.0); Monocytes % 7.4 % (1.7-9.3); Neutrophils # 5.4 K/mm3 (1.8-7.8); Neutrophils % 67.2 % (37.0-80.0); Platelet Count 342 K/mm3 (142-424); Red Blood Count 4.72 M/mm3 (4.20-5.40); Red Cell Distribution Width 13.2 % (11.5-17.5)
[2023-04-19 12:32] LABS: Chloride 105 mmol/L (98-107); Potassium 3.8 mmoL/L (3.5-5.1); Sodium 138 mmol/L (136-145)
[2023-04-19 12:34] LABS: Blood Urea Nitrogen 11 mg/dl (7-17); Estimated Glomerular Filt Rate 63 ml/min (>60); GFR (African American) 77 ML/MIN (>60)
[2023-04-19 12:35] LABS: Alanine Aminotransferase 23 U/L (12-78); Albumin Level 4.3 g/dl (3.5-5.0); Albumin/Globulin Ratio 1.5 (1.1-1.8); Alkaline Phosphatase 85 U/L (38-126); Anion Gap 6.8 mEq/L (5-15); Aspartate Amino Transferase 28 U/L (14-36); Bilirubin,Total 0.9 mg/dl (0.2-1.3); Calcium 9.6 mg/dl (8.4-10.2); Carbon Dioxide 30 mmol/L (22.0-30.0); Cholesterol 178 mg/dl (140-200); Globulin 2.8 g/dL (1.3-3.2); Glucose 120 mg/dl (74-100); Total Protein,Serum 7.1 g/dl (6.3-8.2); Triglycerides 66 mg/dl (30-150); VLDL Cholesterol 13 mg/dL (0-40)
[2023-04-19 12:36] LABS: Chol/HDL Ratio 2.9 (1-3.5); HDL Cholesterol 61 mg/dl (40-60)
[2023-04-19 12:43] LABS: Erythrocyte Sedimentation Rate 13 mm/hr (0-30)
[2023-04-19 12:47] LABS: Direct LDL Cholesterol 80.81 mg/dL (100-129)
[2023-04-19 13:08] LABS: Thyroid Stimulating Hormone 1.81 uIU/mL (0.465-4.68)
== END 2023-04-19 23:59 ==
PROVIDERS: PCP Internal Medicine; Visit Provider Internal Medicine
DX: E03.9 Hypothyroidism, unspecified (principal); E78.5 Hyperlipidemia, unspecified; G43.909 Migraine, unspecified, not intractable, without status migrainosus; K22.70 Barrett's esophagus without dysplasia; M15.0 Primary generalized (osteo)arthritis; M79.7 Fibromyalgia; R23.2 Flushing
CPT/HCPCS: 80053; 80061; 84443; 85025; 85651

== ENCOUNTER 2023-09-22 15:44 | Outpatient (CLI) | payer MEDICARE, OTHER, SELFPAY ==
--- NOTE | 2023-09-22 15:45 | MM_ITS ---
PROCEDURE INFORMATION: Exam: MG Bilateral Screening 3D Mammography Exam date and time: 09/22/2023 3:36 PM Age: 63 years old Clinical indication: Screening. No family history of breast cancer. TECHNIQUE: Imaging protocol: Bilateral Screening tomosynthesis and 2D mammography including computer-aided detection (CAD) when performed. COMPARISON: 1. MG MM DIG SCREENING MAMM BI W/CAD 08/12/2022 10:48 AM 2. MG DMSB DIG MAMM-SCREEN VIANNEY 02/18/2016 11:14 AM 3. MG DMSB DIG MAMM-SCREEN VIANNEY 11/28/2014 11:26 AM 4. MG DMSB DIG MAMM-SCREEN VIANNEY 11/27/2013 10:24 AM FINDINGS: MAMMOGRAPHY: Breast composition: There are scattered areas of fibroglandular density. Mass: No suspicious mass. Architectural distortion: None. Calcifications: No suspicious calcifications. Asymmetric density: None. Skin thickening: None. Axillary adenopathy: None. IMPRESSION: No mammographic evidence of malignancy. Annual screening is recommended unless otherwise clinically indicated. ASSESSMENT: BI-RADS Category 1: Negative
== END 2023-09-22 23:59 | disposition home or self-care (01) ==
LOC: RAD 15:45
PROVIDERS: PCP Internal Medicine; Visit Provider Internal Medicine
DX: Z12.31 Encounter for screening mammogram for malignant neoplasm of breast (principal)
CPT/HCPCS: 77063; 77067

== ENCOUNTER 2023-11-09 14:50 | Outpatient (CLI) | payer MEDICARE, OTHER, SELFPAY ==
[2023-11-09 17:16] LABS: Basophils # 0.1 K/mm3 (0-0.2); Basophils % 0.6 % (0.1-2.0); Eosinophils # 0.2 K/mm3 (0.0-0.4); Eosinophils % 2.9 % (0.1-12.0); Hemoglobin 13.9 g/dL (12.2-16.2); Lymphocytes # 2.1 K/mm3 (0.7-4.5); Lymphocytes % 27.9 % (10-50); Mean Corpuscular HGB Conc 32.4 g/dL (31.8-35.4); Mean Corpuscular Hemoglobin 30.2 pg (27.0-31.2); Mean Corpuscular Volume 93.1 fl (81-99); Mean Platelet Volume 8.8 fl (7.4-10.4); Monocytes # 0.6 K/mm3 (0.1-1.0); Monocytes % 8.2 % (1.7-9.3); Neutrophils # 4.6 K/mm3 (1.8-7.8); Neutrophils % 60.5 % (37.0-80.0); Platelet Count 348 K/mm3 (142-424); Red Blood Count 4.62 M/mm3 (4.20-5.40); Red Cell Distribution Width 13.5 % (11.5-17.5); White Blood Count 7.6 K/mm3 (4.8-10.8)
[2023-11-09 17:47] LABS: Direct LDL Cholesterol 79.16 mg/dL (100-129)
[2023-11-09 18:05] LABS: Thyroid Stimulating Hormone 2.64 uIU/mL (0.465-4.68)
[2023-11-09 21:48] LABS: Albumin Level 4.1 g/dl (3.5-5.0); Chloride 107 mmol/L (98-107); Sodium 139 mmol/L (136-145)
[2023-11-09 21:49] LABS: Potassium 4.4 mmoL/L (3.5-5.1)
[2023-11-09 21:51] LABS: Alanine Aminotransferase 23 U/L (12-78); Albumin/Globulin Ratio 1.4 (1.1-1.8); Alkaline Phosphatase 102 U/L (38-126); Anion Gap 11.4 mEq/L (5-15); Aspartate Amino Transferase 27 U/L (14-36); Bilirubin,Total 0.8 mg/dl (0.2-1.3); Blood Urea Nitrogen 11 mg/dl (7-17); Carbon Dioxide 25 mmol/L (22.0-30.0); Estimated Glomerular Filt Rate 63 ml/min (>60); GFR (African American) 76 ML/MIN (>60); Globulin 2.9 g/dL (1.3-3.2)
[2023-11-09 21:52] LABS: Chol/HDL Ratio 3.2 (1-3.5); Cholesterol 168 mg/dl (140-200); Glucose 80 mg/dl (74-100); HDL Cholesterol 52 mg/dl (40-60); Triglycerides 89 mg/dl (30-150); VLDL Cholesterol 18 mg/dL (0-40)
[2023-11-25 01:11] LABS: 1,25 Dihydroxy Vitamin D 64 pg/mL (.); 1,25-Dihydroxy, Vitamin D-2 <10 pg/mL (.); 1,25-Dihydroxy, Vitamin D-3 64 pg/mL (.)
== END 2023-11-09 23:59 | disposition home or self-care (01) ==
LOC: LAB.DROPOF 11-10 10:41
PROVIDERS: PCP Internal Medicine; Visit Provider Internal Medicine
DX: E03.9 Hypothyroidism, unspecified; I10 Essential (primary) hypertension; E78.2 Mixed hyperlipidemia; E55.9 Vitamin D deficiency, unspecified; I25.118 Atherosclerotic heart disease of native coronary artery with other forms of angina pectoris
CPT/HCPCS: 80053; 80061; 82652; 84443; 85025

== ENCOUNTER 2023-11-11 15:10 | Outpatient (CLI) | payer MEDICARE, OTHER, SELFPAY ==
[2023-11-11 15:58] LABS: Erythrocyte Sedimentation Rate 17 mm/hr (0-30)
[2023-11-11 16:30] LABS: C-Reactive Protein 1.2 mg/L (0-4)
[2023-11-11 17:16] LABS: Vitamin B12 785 pg/mL (239-931)
[2023-11-13 09:57] LABS: Estradiol 16.5 pg/mL (0.0-54.7); FSH 97.3 mIU/mL (25.8-134.8); LH 58.4 mIU/mL (7.7-58.5)
[2023-11-23 04:10] LABS: 1,25 Dihydroxy Vitamin D 51 pg/mL (.); 1,25-Dihydroxy, Vitamin D-2 <10 pg/mL (.); 1,25-Dihydroxy, Vitamin D-3 46 pg/mL (.)
== END 2023-11-11 23:59 | disposition home or self-care (01) ==
LOC: LAB 15:12
PROVIDERS: Obstetrics & Gynecology; PCP Internal Medicine; Visit Provider Internal Medicine
DX: R23.2 Flushing (principal)
CPT/HCPCS: 36415; 82607; 82652; 82670; 83001; 83002; 84207; 84425; 85651; 86140

== ENCOUNTER 2024-08-03 17:00 | Outpatient (CLI) | payer MEDICARE, OTHER, SELFPAY ==
[2024-08-03 17:24] LABS: Basophils % 0.3 % (0.1-2.0); Eosinophils # 0.3 Kmm3 (0.0-0.4); Hematocrit 41.5 % (37.0-47.0); Hemoglobin 14.2 g/dL (12.2-16.2); Immature Granulocytes # 0.04 10^3uL; Immature Granulocytes % 0.5 %; Lymphocytes # 2.2 K/mm3 (0.7-4.5); Lymphocytes % 25.3 % (10-50); Mean Corpuscular HGB Conc 34.2 g/dL (31.8-35.4); Mean Corpuscular Hemoglobin 29.7 pg (27.0-31.2); Mean Corpuscular Volume 86.8 fl (81-99); Mean Platelet Volume 9.9 fl (7.4-10.4); Monocytes # 0.8 K/mm3 (0.1-1.0); Monocytes % 9.5 % (1.7-9.3); Neutrophils # 5.3 K/mm3 (1.8-7.8); Neutrophils % 61.4 % (37.0-80.0); Nucleated Red Blood Cells # 0 10^3/uL; Nucleated Red Blood Cells % 0 %; Platelet Count 329 K/mm3 (142-424); Red Blood Count 4.78 M/mm3 (4.20-5.40); Red Cell Distribution Width 12.1 % (11.5-17.5); Red Cell Distribution Width-SD 38.8 fL; White Blood Count 8.6 K/mm3 (4.8-10.8)
[2024-08-03 17:52] LABS: Alanine Aminotransferase 18 U/L (12-78); Albumin Level 4.1 g/dl (3.5-5.0); Albumin/Globulin Ratio 1.4 (1.1-1.8); Alkaline Phosphatase 96 U/L (38-126); Anion Gap 12.6 mEq/L (5-15); Aspartate Amino Transferase 24 U/L (14-36); Bilirubin,Total 0.5 mg/dl (0.2-1.3); Blood Urea Nitrogen 15 mg/dl (7-17); Calcium 9.5 mg/dl (8.4-10.2); Carbon Dioxide 28 mmol/L (22.0-30.0); Chloride 104 mmol/L (98-107); Chol/HDL Ratio 3.5 (1-3.5); Cholesterol 144 mg/dl (140-200); Estimated Glomerular Filt Rate 63 ml/min (>60); GFR (African American) 76 ML/MIN (>60); Globulin 2.9 g/dL (1.3-3.2); Glucose 95 mg/dl (74-100); HDL Cholesterol 41 mg/dl (40-60); Potassium 4.6 mmoL/L (3.5-5.1); Sodium 140 mmol/L (136-145); Triglycerides 128 mg/dl (30-150); VLDL Cholesterol 26 mg/dL (0-40)
[2024-08-03 18:03] LABS: Direct LDL Cholesterol 67.19 mg/dL (100-129)
[2024-08-03 18:22] LABS: Thyroid Stimulating Hormone 2.59 uIU/mL (0.465-4.68)
--- OUTSIDE RECORDS SUMMARY | 2024-08-04 15:06 | XMS_ITS | Continuity of Care Document ---
Author Name [facility] Organization [facility] Care Team Providers Care Ordnance Artificer Helper Name Role Phone [facility] Unavailable Unavailable Medications Combined list of outpatient medications from Department of Defense and Veterans Affairs facilities.Medications provided include 1) outpatient medications from the last 15 months, and 2) patient-reported medications. Medication Details Route Status Patient Instructions Prescription Expires Prescription Number Last Dispense Date Ordering Provider Order Date Order Qty Source ARMOUR THYROID (THYROID,PO RK), 60 MG, TABLET, ORAL, [employer], 100 ea. BOTTLE Active [id number] 4 2023 90 Pharmac y Data Transac tion Service Facilit y BACLOFEN (baclofen), 5 MG, TABLET, ORAL, [employer], 100 ea. BOTTLE Active [id number] 4 2023 270 Pharmac y Data Transac tion Service Facilit y BACLOFEN (baclofen), 5 MG, TABLET, ORAL, [employer], 100 ea. BOTTLE Active [id number] 4 2023 270 Pharmac y Data Transac tion Service Facilit y MORPHINE SULFATE (MORPHINE SULFATE), 15 MG, TABLET ER, ORAL, [employer], 100 ea. BOTTLE Cancele d [id number] : 2023 0 Pharmac y Data Transac tion Service Facilit y MORPHINE SULFATE (MORPHINE SULFATE), 15 MG, TABLET ER, ORAL, [employer], 100 ea. BOTTLE Active [id number] 4 2023 90 Pharmac y Data Transac tion Service Facilit y MORPHINE SULFATE (MORPHINE SULFATE), 15 MG, TABLET ER, ORAL, [employer], 100 ea. BOTTLE Active [id number] 4 2023 90 Pharmac y Data Transac tion Service Facilit y MORPHINE SULFATE (MORPHINE SULFATE), 15 MG, TABLET ER, ORAL, [employer], 100 ea. BOTTLE Active [id number] 4 2023 90 Pharmac y Data Transac tion Service Facilit y PANTOPRAZOL E SODIUM (PANTOPRAZO LE SODIUM), 40 MG, TABLET DR, ORAL, [employer], 90 ea. BOTTLE Active [id number] 4 2023 15 Pharmac y Data Transac tion Service Facilit y PENICILLIN V POTASSIUM (PENICILLIN V POTASSIUM), 500MG, TABLET, ORAL, [employer], 500 ea. BOTTLE Active [id number] 4 2023 30 Pharmac y Data Transac tion Service Facilit y PROPRANOLOL HCL ER (propranolo l HCl), 160 MG, CAP SA 24H, ORAL, [employer], 100 ea. BOTTLE Active [id number] 4 2023 90 Pharmac y Data Transac tion Service Facilit y Social History Combined list of available smoking, tobacco, and other social history from Department of Defense and Veterans Affairs facilities. Social History Type Response Date Comment Sour e This section is an empty social history section. DoD
--- OUTSIDE RECORDS SUMMARY | 2024-08-04 15:08 | XMS_ITS | Clinical Summary ---
Author Organization Healthcare Address [address] [place] [address] Care Team Providers Care Business Intelligence Developer Name Role Phone Kaveh Jones MD Primary Care Provider [phone] Family History Medical History Relation Name Comments Addiction problem Brother 1 Alcohol abuse Brother 2 Cardiac disorder Father Hypertension Father Conversions - Other Mother Sjogren' s disease Diabetes Mother Other cancer Other Arthritis Sister Relation Name Status Comments Brother 1 Brother 2 Father Mother Other Sister Social History Tobacco Use Types Packs/Day Years Used Date Smoking Tobacco: Never Alcohol Use Standard Drinks/Week Comments No 0 (1 standard drink = 0.6 oz pur e alcohol) Comments Unknown Sex and Gender Information Value Date Recorded Sex Assigned at Not on file Legal Sex Female 8:54 PM EDT Gender Identity Not on file Sexual Orientation Not on file Last Filed Vital Signs Vital Sign Reading Time Taken Comments Blood Pressure - - Pulse - - Temperature - - Respiratory Rate - - Oxygen Saturation - - Inhaled Oxygen Concentration - - Weight 73 kg (161 lb) 10/23/2013 4:08 PM EDT Height 167.6 cm (5' 6 ) 11/08/2015 9:00 AM EDT Body Mass Index 25.99 10/23/2013 4:08 PM EDT Plan of Treatment Not on file Care Teams Business Intelligence Developer Relationship Specialty Start Date End Date Kaveh Jones MD [address] [address] [place] [address] PCP - General 07/12/20
--- OUTSIDE RECORDS SUMMARY | 2024-08-04 15:08 | XMS_ITS | Data Portability ---
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 [address], [id number], 08/09/2023 12:17:35 08/04/19 24 08/05/2023 D-PRE SUMPT PAT URINE DRUG REPOR T urine creatinine (validity test) 30.5 mg/dL 20.0 - 300.0 Not Available Brooke Dyson MD [facility] (In House Lab) [address] [place] [address], [id number], 08/09/2023 12:17:35 12/08/19 24 12/08/2023 MORPH INE SULFA TE abnormal status abnormal Not Available Frederick Dyson MD [facility] (In House Lab) [address] [place] [address], [id number], 12/10/2023 13:33:38 12/08/19 24 12/08/2023 MORPH INE SULFA TE abnormal status high Not Available Frederick Dyson MD [facility] (In House Lab) [address] [place] [address], [id number], 12/10/2023 13:33:38 12/08/19 24 12/10/2023 OPIAT E DEFIN ITIVE PANEL LC/MS codeine 0.0 NG/mL <75.0 Not Available Brooke Dyson MD [facility] (In House Lab) [address] [place] [address], [phone], 12/10/2023 13:33:38 12/08/19 24 12/10/2023 OPIAT E DEFIN ITIVE PANEL LC/MS morphine 2050.1 NG/mL <75.0 abnormal Not Available Brooke Dyson MD [facility] (In House Lab) [address] [place] [address], [id number], 12/10/2023 13:33:38 12/08/19 24 12/10/2023 OPIAT E DEFIN ITIVE PANEL LC/MS 6-CHINA 0 NG/mL <15.0 Not Available Brooke Dyson MD [facility] (In House Lab) [address] [place] [address], [id number], 12/10/2023 13:33:38 12/08/19 24 12/10/2023 OPIAT E DEFIN ITIVE PANEL LC/MS hydromorphon e 23.6 NG/mL <75.0 Not Available Frederick Dyson MD [facility] (In House Lab) [address] [place] [address], [id number], 12/10/2023 13:33:38 12/08/19 24 12/10/2023 OPIAT E DEFIN ITIVE PANEL LC/MS hydrocodone 0 NG/mL <75.0 Not Available Frederick Dyson MD [facility] (In House Lab) [address] [place] [address], [id number], 12/10/2023 13:33:38 12/08/19 24 12/10/2023 OPIAT E DEFIN ITIVE PANEL LC/MS norhydrocodo ne 0 NG/mL <75.0 Not Available Frederick Dyson MD [facility] (In House Lab) [address] [place] [address], [id number], 12/10/2023 13:33:38 12/08/19 24 12/08/2023 D-PRE SUMPT PAT URINE DRUG REPOR T amphetamine NEGATI VE NG/mL <1000. 0 Not Available Brooke Dyson MD [facility] (In House Lab) [address] [place] [address], [phone], 12/10/2023 13:33:37 12/08/19 24 12/08/2023 D-PRE SUMPT PAT URINE DRUG REPOR T benzodiazepi ne <3.3 NG/mL <200.0 Curre nt metho d may not detec t low level s of Klono pin Not Available Brooke Dyson MD [facility] (In House Lab) [address] [place] [address], [id number], 12/10/2023 13:33:37 12/08/19 24 12/08/2023 D-PRE SUMPT PAT URINE DRUG REPOR T buprenorphin e NEGATI VE NG/mL <10.0 Not Available rBooke Dyson MD [facility] (In House [facility]) [address] [place] [address], [id number], 12/10/2023 13:33:37 12/08/19 24 12/08/2023 D-PRE SUMPT PAT URINE DRUG REPOR T cannabinoid NEGATI VE NG/mL <50.0 Not Available Brooke Dyson MD [facility] (In House [facility]) [address] [place] [address], [id number], 12/10/2023 13:33:37 12/08/19 24 12/08/2023 D-PRE SUMPT PAT URINE DRUG REPOR T cocaine NEGATI VE NG/mL <300.0 Not Available Brooke Dyson MD [facility] (In House [facility]) [address] [place] [address], [id number], 12/10/2023 13:33:37 12/08/19 24 12/08/2023 D-PRE SUMPT PAT URINE DRUG REPOR T ethanol NEGATI VE mg/dL <50.0 Not Available Brooke Dyson MD [facility] (In House [facility]) [address] [place] [address], [phone], 12/10/2023 13:33:37 12/08/19 24 12/08/2023 D-PRE SUMPT PAT URINE DRUG REPOR T methadone <0.8 NG/mL <300.0 Not Available Brooke Dyson MD [facility] (In House [facility]) [address] [place] [address], [phone], 12/10/2023 13:33:37 12/08/19 24 12/08/2023 D-PRE SUMPT PAT URINE DRUG REPOR T opiates 1442.0 NG/mL <300.0 high Opiat es inclu arleen Codei ne,Mo rphin e, [place] morph one,H ydroc odone Not Available Brooke Dyson MD [facility] (In House [facility]) [address] [place] [address], [id number], 12/10/2023 13:33:37 12/08/19 24 12/08/2023 D-PRE SUMPT PAT URINE DRUG REPOR T oxycodone 3.0 NG/mL <300.0 Not Available Brooke Dyson MD [facility] (In House [facility]) [address] [place] [address], [id number], 12/10/2023 13:33:37 12/08/19 24 12/08/2023 D-PRE SUMPT PAT URINE DRUG REPOR T urine creatinine (validity test) 64.6 mg/dL 20.0 - 300.0 Not Available Brooke Dyson MD [facility] (In House [facility]) [address] [place] [address], [id number], 12/10/2023 13:33:37 04/12/19 25 04/12/2024 MORPH INE SULFA TE abnormal status abnormal Not Available Frederick Dyson MD [facility] (In House [facility]) [address] [place] [address], [id number], 04/21/2024 19:10:25 04/12/19 25 04/12/2024 MORPH INE SULFA TE abnormal status high Not Available Frederick Dyson MD [facility] (In House [facility]) [address] [place] [address], [id number], 04/21/2024 19:10:25 04/12/19 25 04/21/2024 OPIAT E DEFIN ITIVE PANEL LC/MS codeine 0.0 NG/mL <75.0 Not Available Brooke Dyson MD [facility] (In House [facility]) [address] [place] [address], 82814, 04/21/2024 19:10:24 04/12/19 25 04/21/2024 OPIAT E DEFIN ITIVE PANEL LC/MS morphine 2402.7 NG/mL <75.0 abnormal Not Available Brooke Dyson MD [facility] (In House [facility]) [address] [place] [address], [id number], 04/21/2024 19:10:24 04/12/19 25 04/21/2024 OPIAT E DEFIN ITIVE PANEL LC/MS 6-CHINA 0 NG/mL <15.0 Not Available Brooke Dyson MD [facility] (In House [facility]) [address] [place] [address], [id number], 04/21/2024 19:10:24 04/12/19 25 04/21/2024 OPIAT E DEFIN ITIVE PANEL LC/MS hydromorphon e 0 NG/mL <75.0 Not Available Frederick Dyson MD [facility] (In House [facility]) [address] [place] [address], 93715, 04/21/2024 19:10:24 04/12/19 25 04/21/2024 OPIAT E DEFIN ITIVE PANEL LC/MS hydrocodone 0 NG/mL <75.0 Not Available Frederick Dyson MD [facility] (In House [facility]) [address] [place] [address], [id number], 04/21/2024 19:10:24 04/12/19 25 04/21/2024 OPIAT E DEFIN ITIVE PANEL LC/MS norhydrocodo ne 0 NG/mL <75.0 Not Available Frederick Dyson MD [facility] (In House [facility]) [address] [place] [address], [id number], 04/21/2024 19:10:24 04/12/19 25 04/13/2024 D-PRE SUMPT PAT URINE DRUG REPOR T amphetamine NEGATI VE NG/mL <1000. 0 Not Available Brooke Dyson MD [facility] (In House [facility]) [address] [place] [address], 51568, 04/21/2024 19:10:24 04/12/19 25 04/13/2024 D-PRE SUMPT PAT URINE DRUG REPOR T benzodiazepi ne <3.3 NG/mL <200.0 Curre nt metho d may not detec t low level s of Klono pin Not Available Brooke Dyson MD [facility] (In House [facility]) [address] [place] [address], 51261, 04/21/2024 19:10:24 04/12/19 25 04/13/2024 D-PRE SUMPT PAT URINE DRUG REPOR T buprenorphin e NEGATI VE NG/mL <10.0 Not Available Brooke Dyson MD [facility] (In House [facility]) [address] [place] [address], [phone], 04/21/2024 19:10:24 04/12/19 25 04/13/2024 D-PRE SUMPT PAT URINE DRUG REPOR T cannabinoid NEGATI VE NG/mL <50.0 Not Available Brooke Dyson MD [facility] (In House [facility]) [address] [place] [address], 92503, 04/21/2024 19:10:24 04/12/19 25 04/13/2024 D-PRE SUMPT PAT URINE DRUG REPOR T cocaine NEGATI VE NG/mL <300.0 Not Available Brooke Dyson MD [facility] (In House [facility]) [address] [place] [address], 33666, 04/21/2024 19:10:24 04/12/19 25 04/13/2024 D-PRE SUMPT PAT URINE DRUG REPOR T ethanol NEGATI VE mg/dL <50.0 Not Available Brooke Dyson MD [facility] (In House [facility]) [address] [place] [address], 17188, 04/21/2024 19:10:24 04/12/19 25 04/13/2024 D-PRE SUMPT PAT URINE DRUG REPOR T methadone <0.8 NG/mL <300.0 Not Available Brooke Dyson MD [facility] (In House [facility]) [address] [place] [address], 33944, 04/21/2024 19:10:24 04/12/19 25 04/13/2024 D-PRE SUMPT PAT URINE DRUG REPOR T opiates 1363.0 NG/mL <300.0 high Opiat es inclu arleen Codei ne,Mo rphin e, [place] morph one,H ydroc odone Not Available Brooke Dyson MD [facility] (In House [facility]) [address] [place] [address], 72130, 04/21/2024 19:10:24 04/12/19 25 04/13/2024 D-PRE SUMPT PAT URINE DRUG REPOR T oxycodone 24.0 NG/mL <300.0 Not Available Brooke Dyson MD [facility] (In House Lab) [address] [place], [address], 04/21/2024 19:10:24 04/12/19 25 04/13/2024 D-PRE SUMPT PAT URINE DRUG REPOR T urine creatinine (validity test) 35.7 mg/dL 20.0 - 300.0 Not Available Brooke Dyson MD [facility] (In House Lab) [address] [place], [address], 04/21/2024 19:10:24 Result Notes None recorded. Problems Name Problem SNOMED Code Status Onset Date Resolution Date Notes Provider Name and Address Organization Details Recorded Time Autoimmun e disease 97954285 Active 2010 (279.49)A utoimmune disorder Not Available [facility] 2 22:15:53 Recurrent major depressiv e episodes 170624848 Active 2012 (296.30)U nspecifie d Major Depressio n, Recurrent Episode Not Available [facility] 2 22:15:53 Panic disorder without agoraphob ia 70426919 Active 2012 (300.01)P anic Disorder withou Agoraphob ia Not Available [facility] 2 22:15:53 Continuou s opioid dependenc e 813840142 Active 2013 (304.01)O pioid Type Dependenc e Continuou s Not Available [facility] 2 22:15:53 Drug dependenc e 186054038 Active 2010 (304.9)Dr franco Dependenc e Not Otherwise Specified Not Available [facility] 2 22:15:53 Psychalgi a 5584998 Active 2012 (307.89)O ther Pain Disorder Related to Psycholog ical Factors Not Available [facility] 2 22:15:54 Adjustmen t disorder with mixed emotional features 76979329 Active 2014 (309.28)A djustment Disorder with Mixed Anxiety and Depressed Mood Not Available [facility] 2 22:15:54 Muscle atrophy 00587244 Active (728.2)Mu scular Wasting and Disuse Atrophy Not Elsewhere Classifie d Not Available [facility] 2 22:15:54 Fibromyos itis 14684686 Active (729.1)My algia and Myositis Not Otherwise Specified Not Available [facility] 2 22:15:54 Cramp in limb 468702880 Active 2012 (729.82)C ramp in Limb Not Available [facility] 2 22:15:54 Disorder of bone and articular cartilage 020903827 Active 2010 (733.90)B ONE & CARTILAGE DIS NOS Not Available [facility] 2 22:15:54 Malaise and fatigue 306014337 Active 2012 (780.79)M ALAISE AND FATIGUE NEC Not Available [facility] 2 22:15:54 Hyperhidr osis 725216389 Active (780.8)Ge neralized Hyperhidr osis Not Available [facility] 2 22:15:54 Headache 83887012 Active (784.0)He adache Not Available [facility] 2 22:15:54 Reduced libido 2477313 Active (799.81)D ecreased Libido Not Available [facility] 2 22:15:54 Opioid dependenc e 39960601 Active 2014 (F11.20)O pioid dependenc e, uncomplic ated Not Available [facility] 2 22:15:54 Panic disorder 813879213 Active 2019 (F41.0)Pa philip disorder [episodic paroxysma l anxiety] Not Available [facility] 2 22:15:54 Generaliz ed anxiety disorder 36371063 Active 2019 (F41.1)Ge neralized anxiety disorder Not Available [facility] 2 22:15:54 Posttraum atic stress disorder 16357999 Active 2019 (F43.10)P ost-traum atic stress disorder, unspecifi ed Not Available [facility] 2 22:15:55 Adjustmen t disorder with mixed anxiety and depressed mood 633827002 Active 2015 (F43.23)A djustment disorder with mixed anxiety and depressed mood Not Available [facility] 2 22:15:55 Undiffere ntiated somatofor m disorder 94677161 Active 2015 (F45.1)Un different iated somatofor m disorder Not Available [facility] 2 22:15:55 Psychophy siologic insomnia 113263820 Active 2019 (F51.04)P sychophys iologic insomnia Not Available [facility] 2 22:15:55 Dream anxiety disorder 928637564 Active 2019 (F51.5)Ni ghtmare disorder Not Available [facility] 2 22:15:55 Migraine 87793078 Active 2018 (G43.909) Migraine, unspecifi ed, not intractab le, without status migrainos us Not Available [facility] 2 22:15:55 Spondylos is without myelopath y 02209543 Active 2016 (M47.816) Spondylos is without myelopath y or radiculop athy, lumbar region Not Available [facility] 2 22:15:55 Degenerat ion of cervical intervert ebral disc 73653406 Active 2016 (M50.30)O ther cervical disc degenerat ion, unspecifi ed cervical region Not Available [facility] 2 22:15:55 Muscle pain 19927849 Active 2014 (M79.1)My algia Not Available [facility] 2 22:15:56 Fibromyal calos 880435889 Active 2018 (M79.7)Fi bromyalgi a Not Available [facility] 2 22:15:56 Long-term drug therapy Active 2010 (V58.69)E ncounter for Long-Term Use of Other Medicatio ns Not Available [facility] 2 22:15:56 Depressio n screening Active (V79.0)Sp ecial Screening Examinati on for Depressio n Not Available [facility] 2 22:15:56 Long-term current use of opiate analgesic drug 57583801657 4108 Active 2014 (Z79.891) termite renewal inspector (current) use of opiate analgesic Not Available [facility] 2 22:15:56 Current drug user 687393178 Active 2014 (Z79.899) Other assisted (current) drug therapy Not Available [facility] 2 22:15:57 Spasm 72081997 Active 2023 Chhaya Cox MD [address] [place], [address] , [facility] 4 17:26:45 Problem Notes None recorded. Medical Equipment None Reported. Allergies Allergen ID Allergen Name Allergen Category Reaction Reaction Severity Criticality Documentation Date Start Date Code Code System Note Provider Name and Address Organization Details Recorded Time 93561 dichloral phenazone medicatio n Not available Not available Not available 07/01/20212010 79383 RxNorm Not Available [facility] 2 22:02:40 28100 Substance with sulfonami de structure and antibacte rial mechanism of action (substanc e) medicatio n Not available Not available Not available 07/01/20212010 34568 8003 SNOMED Not Available [facility] 2 22:02:40 63690 Lexapro medicatio n Not available Not available Not available 07/01/20212010 83563 1 RxNorm Not Available [facility] 2 22:02:40 55017 Ambien medicatio n Not available Not available Not available 07/01/20212010 61686 5 RxNorm Not Available [facility] 2 22:02:40 33949 ciproflox acin medicatio n Not available Not available Not available 07/01/20212010 2551 RxNorm Not Available [facility] 2 22:02:40 55619 Cymbalta medicatio n Not available Not available Not available 07/01/20212010 60616 4 RxNorm Not Available [facility] 22:02:41 Medications Name Sig Start Date Stop Date Status Note LastModified by Organization Details LastModified Time [place] Thyroid 60 mg tablet TAKE 1 TABLET BY MOUTH DAILY active Not Available Not Available No t Available clonidine HCl 0.1 mg tablet 1 PO at HS x 1 week, then 1/2 to 1 in the AM and 1 PO at HS 07/09 completed gave her headache Not Available Not Available Not Available doxycycli ne hyclate 100 mg capsule TAKE 1 CAPSULE BY MOUTH TWICE DAILY FOR 10 DAYS 08/03 completed Not Available Not Available Not Available atorvasta tin 10 mg tablet TAKE 1 TABLET BY MOUTH ONCE DAILY active Not Available Not Available No t Available penicilli n V potassium 500 mg tablet TAKE 1 TABLET BY MOUTH EVERY 8 HOURS FOR 10 DAYS active Not Available Not Available No t Available lysine 1,000 mg tablet bid prn 01/20 completed Not Available Not Available Not Available propranol ol 60 mg tablet BID 01/20 completed Not Available Not Available Not Available Inderal LA 160 mg capsule,e xtended release TAKE 1 CAPSULE BY MOUTH EVERY MORNING FOR TREMORS OR BLOOD PRESSURE active Not Available Not Available No t Available acyclovir 400 mg tablet 01/20 completed Not Available Not Available Not Available triamcino lone acetonide 0.1 % topical cream active Not Available Not Available Not Available MS Contin 15 mg tablet,ex tended release 1 every morning, 2 every evening 2024 active Pharmacy is closed on the weekends Not Available Not Available Not Available Celebrex 100 mg capsule Take 1 capsule twice a day by oral route. 05/25 completed [facility] Not Available Not Available Not Available magnesium oxide 400 mg (241.3 mg magnesium ) tablet Take 1 daily 10/24 completed d/c Not Available Not Available Not Available Klonopin 0.5 mg tablet one tab every other day 05/13 completed done Not Available Not Available Not Available amitripty line 10 mg tablet 1 q hs 11/25 completed Not Available Not Available Not Available baclofen 10 mg tablet Take 1 tablet 3 times a day by oral route for 90 days. 05/25 completed changed to 5mg dose at 05/26/23 ov. Not Available Not Available Not Available levothyro xine 50 mcg tablet QD 07/09 completed changed Not Available Not Available Not Available pantopraz ole 40 mg tablet,de layed release TAKE 1 TABLET BY MOUTH EVERY MORNING active Not Available Not Available No t Available nitroglyc corina 0.4 mg sublingua l tablet DISSOLVE 1 TABLET UNDER THE TONGUE EVERY 5 MINUTES NEEDED FOR CHEST PAIN. DO NOT EXCEED A TOTAL OF 3 DOSES IN 15 MINUTES. IF NO RELIEF AFTER 3 DOSES CALL 911/GO TO ER active Not Available Not Available No t Available Vistaril 25 mg capsule 1 or 2 PO q 6 hr prn anxiety 07/09 completed dry mouth Not Available Not Available Not Available [place] Thyroid 30 mg tablet Take 1 daily 08/03 completed Not Available Not Available Not Available arnica 20 % topical tincture Prn 01/20 completed Not Available Not Available Not Available ondansetr on 4 mg disintegr ating tablet DISSOLVE 1 TABLET ON THE TONGUE EVERY 8 HOURS NEEDED FOR NAUSEA OR VOMITING active Not Available Not Available No t Available Klonopin 1 mg tablet Take 1 twice daily 10/24 completed will begin tapering dose Not Available Not Available Not Available Daily Multiple tablet 1 daily 01/20 completed Not Available Not Available Not Available amoxicill in 875 mg-potass ium clavulana te 125 mg tablet TAKE 1 TABLET BY MOUTH TWICE DAILY FOR 10 DAYS 08/03 completed Not Available Not Available Not Available belladonn a tincture (bulk) 30 mg/100 mL liquid 6x every hour prn 01/20 completed Not Available Not Available Not Available calcium 200 mg (as calcium citrate 950 mg) tablet 1000 units qd 01/20 completed Not Available Not Available Not Available Skelaxin 800 mg tablet Take 1 four times a day prn (NAME BRAND ONLY) 03/02 completed Disconti nued by system because copied to new Rx. Not Available Not Available Not Available cyclobenz aprine 5 mg tablet BID PRN 08/31/ 2021 03/03 /2022 completed old rx Not Available Not Available Not Available cyclospor ine 0.05 % eye drops in a dropperet te INSTILL 1 DROP IN EACH EYE TWICE DAILY active Not Available Not Available No t Available Rozerem 8 mg tablet 1 hs prn 12/05 completed Not Available Not Available Not Available cholecalc iferol (vitamin D3) 25 mcg (1,000 unit) tablet 1200 units qd 01/20 completed Not Available Not Available Not Available omega-3 fatty acids-fis h oil 300 mg-1,000 mg capsule combo suppleme nt 01/20 completed Not Available Not Available Not Available omeprazol e 20 mg tablet,de layed release Take 1 twice daily 05/13 completed switched to pantopra zole Not Available Not Available Not Available lysine HCl (bulk) 100 % powder cream prn 01/20 completed Not Available Not Available Not Available arnica flower (bulk) tincture Prn 09/02 completed Not Available Not Available Not Available Narcan 4 mg/actuat ion nasal spray As directed 2018 active Not Available Not Available Not Avai lable baclofen 5 mg tablet TAKE 1 TABLET THREE TIMES A DAY 2024 active Not Available Not Available Not Avai lable Ubrelvy 100 mg tablet 01/20 completed Not Available Not Available Not Available Voltaren Arthritis Pain 1 % topical gel APPLY 2 GRAMS TO THE AFFECTED AREA(S) BY TOPICAL ROUTE 4 TIMES PER DAY (please do not fill generic) 05/24 completed ptc Not Available Not Available Not Available BinaxNOW COVID-19 Ag Self Test kit TEST DIRECTED TODAY 05/24 completed Not Available Not Available Not Available Vitals Date Recorded Body height Heart rate Respiratory rate Systolic blood pressure Diastolic blood pressure Provider Name and Address Organization Details Last Updated DateTime 04/12/2024 167.64 cm 86 /min 18 /min 144 mm[Hg] 100 mm[Hg] Frannie [facility] 14:05:37 Date Recorded Body height Body mass index (BMI) Body weight Respiratory rate Heart rate Systolic blood pressure Diastolic blood pressure Provider Name and Address Organization Details Last Updated DateTime 4 167.64 cm 35.2 kg/m2 20583.1 4 g 18 /min 86 /min 137 mm[Hg] 91 mm[Hg] [facility] 4 17:14:57 Date Recorded Body height Respiratory rate Body mass index (BMI) Body weight Heart rate Systolic blood pressure Diastolic blood pressure Provider Name and Address Organization Details Last Updated DateTime 4 167.64 cm 18 /min 34.7 kg/m2 24626.3 6 g 66 /min 117 mm[Hg] 79 mm[Hg] [facility] 4 15:04:10 Date Recorded Body height Respiratory rate Body mass index (BMI) Body weight Heart rate Systolic blood pressure Diastolic blood pressure Provider Name and Address Organization Details Last Updated DateTime 4 167.64 cm 18 /min 36.2 kg/m2 516629. 69 g 69 /min 147 mm[Hg] 71 mm[Hg] [facility] 4 14:02:58 Date Recorded Body height Respiratory rate Heart rate Systolic blood pressure Diastolic blood pressure Provider Name and Address Organization Details Last Updated DateTime 02/04/2024 167.64 cm 18 /min 75 /min 139 mm[Hg] 90 mm[Hg] [facility] 4 14:39:56 Social History Question Answer Notes LastModified by Organizat ion Details LastModified Time Tobacco Smoking Status Never Smoker [facility] 09/23/2021 14:28:12 What Is Your Level Of Caffeine Consumption? None [email or web address] Information not available 09/23/2021 Sex: Unknown Functional Status Question Answer Note LastModified by Organization D etails LastModified Time What is your level of alcohol consumption? None [email or web address] Information not available 09/23/2021 Mental Status None recorded. Family History Nothing Reported Notes:History : . COPD; oste oporosis; Sjogren's syndrome (mother); CVD (father); HTN (brother) Father: Patient's father had the following illnesses: due to Heart issues Mother: Patient's mother had the following illnesses: due to Unknown Other: a brother had HTN, unknown if this is the same brother who committed suicide in 2017 Medical History No medical history recorded. Gynecological HistoryNo gynecological history recorded. Obstetrics History GPAL:G 0 P 0 0 0 0 Immunizations Vaccine Type Date Status Note Provider Nam e and Address Organization Details Recorded Time SARS-COV-2 (COVID-19) vaccine, UNSPECIFIED 09/23/2021 completed Chhaya Cox MD [facility] [id number] 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 F45.1 Fibromyalgia 248504868 M 79.7 Continuous opioid dependence 188621667 F11.20 Autoimmune disease 03625 009 M35.9 Degenerati on of cervical intervertebral disc 78401024 M50.30 Disorder o f bone and articular cartilage 519929503 M24.10 Fibromyositis 62686325 M 79.7 Headache 60092937 R51.9 Long-term current use of opiate analgesic drug 2033699834 74202 Z79.891 Malaise and fatigue 2717 80824 R53.81 Spondylosi s without myelopathy 51508379 M47.789 [id number] Faby Wood, DSP ENGINEER [address] [address] 09/23/2021 14:02:59 09/24/2021 09:39:19 Undifferentiated somatoform disorder 68583004 F45.1 Fibromyalgia 980265743 M 79.7 Long-term current use of opiate analgesic drug 8534126789 06747 Z79.891 HP2 (CBC/CMP/G GT) CBC - ordered to monitor the effects of prescribed medication CMP/GGT - ordered to obtain baseline levels for renal and hepatic functions and electrolyt e statusdraw n to monitor the termite helper effects of current medication . Continuous opioid dependence 360233378 F11.20 Autoimmune disease 06767 009 M35.9 Degenerati on of cervical intervertebral disc 60239874 M50.30 Disorder o f bone and articular cartilage 506670457 M24.10 Fibromyositis 78007378 M 79.7 Headache 44820796 R51.9 Malaise and fatigue 2717 70362 R53.81 Spondylosi s without myelopathy 37094578 M47.816 Muscle atrophy 95352153 M62.50 [id number] Faby Wood, DSP ENGINEER [facility] [place] [id number] 11/26/2021 07:13:49 11/27/2021 08:53:47 Undifferentiated somatoform disorder 82243936 F45.1 Fibromyalgia 750596658 M 79.7 Continuous opioid dependence 323937742 F11.20 Autoimmune disease 41552 009 M35.9 Degenerati on of cervical intervertebral disc 77697664 M50.30 Disorder o f bone and articular cartilage 089708962 M24.10 Fibromyositis 33597894 M 79.7 Headache 82488509 R51.9 Long-term current use of opiate analgesic drug 6928875878 01118 Z79.891 Malaise and fatigue 2717 68207 R53.81 Spondylosi s without myelopathy 68850661 M47.816 Undifferen tiated somatoform disorder 65280533 F45.1 Fibromyalgia 512456108 M 79.7 [id number] Faby Wood, DSP ENGINEER [facility] [place] [phone] 01/20/2022 13:04:49 01/26/2022 14:32:30 Long-term current use of opiate analgesic drug 5554871354 89739 Z79.891 Diagnostic /Lab: Order Presumptiv e UDT (necessary for rapid results) with Definitive confirmati on for chronic pain patient, to define treatment and reinforce therapeuti c compliance ; the following apply: [Presumpti ve UDT includes: (Amp, Letty, Charbel, Bup, THC, GILMAR, ETOH, Meth, Opi, Oxy )] *-Patient is receiving controlled medication s. *-Presumpt pat UDT to identify presence of illicit/no n-prescrib ed substance( s) - Confirm positive for ongoing safe prescribin g of controlled substances . *-Presumpt pat UDT to identify presence of licit/pres cribed substance( s)-Confirm unexpected results, identify specific drug(s) in large class and ensure appropriat e use of prescribed medication (s). *-Definiti ve UDT inadequate ly detected by Presumptiv e UDT (gabapenti n, pregabalin , tramadol, fentanyl, tapentadol and carisoprod ol). Undifferen tiated somatoform disorder 43782546 F45.1 Fibromyalgia 290897501 M 79.7 Continuous opioid dependence 339544236 F11.20 Autoimmune disease 56476 009 M35.9 Degenerati on of cervical intervertebral disc 95511116 M50.30 Disorder o f bone and articular cartilage 391560092 M24.10 Fibromyositis 53791503 M 79.7 Headache 50641491 R51.9 Malaise and fatigue 2717 89192 R53.81 Spondylosi s without myelopathy 52273199 M47.816 Undifferen tiated somatoform disorder 67290193 F45.1 Fibromyalgia 613523730 M 79.7 Spasm 71282738 R25.2 [id number] Faby Wood, DSP ENGINEER 2416 [facility] 2416 [place] [address] 03/19/2022 13:16:19 03/31/2022 15:48:44 Long-term current use of opiate analgesic drug 7645088533 99453 Z79.891 Undifferen tiated somatoform disorder 78394148 F45.1 Fibromyalgia 461790229 M 79.7 Continuous opioid dependence 139247618 F11.20 Autoimmune disease 62409 009 M35.9 Degenerati on of cervical intervertebral disc 23633315 M50.30 Disorder o f bone and articular cartilage 036027177 M24.10 Fibromyositis 88349906 M 79.7 Headache 39576937 R51.9 Malaise and fatigue 2717 72436 R53.81 Spondylosi s without myelopathy 53273319 M47.816 Spasm 71539175 R25.2 [id number] Faby Wood, DSP ENGINEER 2416 [facility] 2416 [place] [address] 05/20/2022 13:00:23 06/02/2022 09:14:51 Long-term current use of opiate analgesic drug 6181045424 53477 Z79.891 Diagnostic /Lab: Order Presumptiv e UDT (necessary for rapid results) with Definitive confirmati on for chronic pain patient, to define treatment and reinforce therapeuti c compliance ; the following apply: [Presumpti ve UDT includes: (Amp, Letty, Charbel, Bup, THC, GILMAR, ETOH, Meth, Opi, Oxy )] *-Patient is receiving controlled medication s. *-Presumpt pat UDT to identify presence of illicit/no n-prescrib ed substance( s) - Confirm positive for ongoing safe prescribin g of controlled substances . *-Presumpt pat UDT to identify presence of licit/pres cribed substance( s)-Confirm unexpected results, identify specific drug(s) in large class and ensure appropriat e use of prescribed medication (s). *-Definiti ve UDT inadequate ly detected by Presumptiv e UDT (gabapenti n, pregabalin , tramadol, fentanyl, tapentadol and carisoprod ol). HP1 (CBC/Renal /Hepatic/G GT) CBC - ordered to monitor the effects of prescribed medication s. Renal/Hepa tic/GGT - ordered to monitor toxicity of renal hepatic function due to medication . Undifferen tiated somatoform disorder 37709077 F45.1 Fibromyalgia 134635321 M 79.7 Continuous opioid dependence 605695803 F11.20 Autoimmune disease 84823 009 M35.9 Degenerati on of cervical intervertebral disc 11971487 M50.30 Disorder o f bone and articular cartilage 317659720 M24.10 Fibromyositis 26774036 M 79.7 Headache 30399546 R51.9 Malaise and fatigue 2717 33232 R53.81 Spondylosi s without myelopathy 11387287 M47.816 [facility] 13059011 R25.2 [id number] Rebeca CLINTON Tejeda DSP ENGINEER 2416 [facility] 2416 [place] [address] 07/21/2022 14:11:55 07/21/2022 15:04:01 Long-term current use of opiate analgesic drug 8449541491 24802 Z79.891 Diagnostic /Lab: Order Presumptiv e UDT (necessary for rapid results) with Definitive confirmati on for chronic pain patient, to define treatment and reinforce therapeuti c compliance ; the following apply: [Presumpti ve UDT includes: (Amp, Letty, Charbel, Bup, THC, GILMAR, ETOH, Meth, Opi, Oxy )] *-Patient is receiving controlled medication s. *-Presumpt pat UDT to identify presence of illicit/no n-prescrib ed substance( s) - Confirm positive for ongoing safe prescribin g of controlled substances . *-Presumpt pat UDT to identify presence of licit/pres cribed substance( s)-Confirm unexpected results, identify specific drug(s) in large class and ensure appropriat e use of prescribed medication (s). *-Definiti ve UDT inadequate ly detected by Presumptiv e UDT (gabapenti n, pregabalin , tramadol, fentanyl, tapentadol and carisoprod ol). Autoimmune disease 41172 009 M35.9 Degenerati on of cervical intervertebral disc 87137186 M50.30 Global Risk Assessment Score:High Risk.High Risk Assessment : Multiple Opioid Medication Medication Regimen (>2 controlled substances ) High Doses of Opioids to Manage Pain (>30 mg Morphine or equivalent ) Abnormal UDMs (including presence of licit/illi cit meds not prescribed Abnormal PC/DS Abnormal PDMP Physical symptoms suggesting substance abuse-misu se at OV's Behavioral /psycholog ical symptoms suggesting substane abuse-misu se at OV's History of legal or illegal substane use including treatments for abuse or dependence Personal History of alcoholism , illicit drug abuse/dive rsion, ALC abuse/phys ical abuse Moderate Risk Assessment : Multiple Pain or Medical Conditions (i.e., back, head and fibromyalg ia) Multiple Physicians treating patient's conditions History of early refills History of previous pain clinics History of legal or illegal substance use by first degree relatives, including treatments for abuse or dependence History/Di agnosis of Mental Health/Psy chiatric illnesses that may impact the patient's treatment with controlled substances History/Di agnosis of Mental Health/Psy chiatric illnesses that may impact the patient's treatment with controlled substances Non [place] resident Difficulty in contacting the patient ( i.e. multiple residences , multiple phone numbers/no phone, frequent out of town travel/out -of-state work) ORT Score:Risk Score: Date of ORT: . Lab work reviewed:U DS of 05/20/2022 reviewed and is appropriat suri TRIPATHI (prescript ion drug monitoring report):As of 07/21/2022 reviewed and is appropriat e Last fill 07/02/2022 Inappropri ate due to: . Fibromyalgia 357285072 M 79.7 Spasm 60801974 R25.2 [id number] Faby Wood, SHAWN [address] [place] [address] 09/23/2022 14:57:23 09/23/2022 15:49:25 Long-term current use of opiate analgesic drug 9379434072 42376 Z79.891 Undifferen tiated somatoform disorder 62920919 F45.1 Fibromyalgia 030654358 M 79.7 Continuous opioid dependence 715484739 F11.20 Autoimmune disease 68939 009 M35.9 Degenerati on of cervical intervertebral disc 18834485 M50.30 Disorder o f bone and articular cartilage 072930771 M24.10 Fibromyositis 31009156 M 79.7 Headache 34997716 R51.9 Malaise and fatigue 2717 09470 R53.81 Spondylosi s without myelopathy 09105067 M47.816 Spasm 84412297 R25.2 [id number] Faby Wood, SHAWN [address] [place] [address] 11/19/2022 14:58:08 11/19/2022 15:51:07 Long-term current use of opiate analgesic drug 0967947073 70448 Z79.891 Undifferen tiated somatoform disorder 61478316 F45.1 Fibromyalgia 085468181 M 79.7 Continuous opioid dependence 672260209 F11.20 Autoimmune disease 53164 009 M35.9 Degenerati on of cervical intervertebral disc 79065808 M50.30 Disorder o f bone and articular cartilage 883107144 M24.10 Fibromyositis 39952561 M 79.7 Headache 70663112 R51.9 Malaise and fatigue 2717 75844 R53.81 Spondylosi s without myelopathy 57257143 M47.816 Spasm 67023674 R25.2 [id number] Faby LoydVishal Wood, DSP ENGINEER 2416 [facility] 2416 [place] [address] 01/26/2023 14:45:50 01/28/2023 11:50:51 Long-term current use of opiate analgesic drug 0552805884 22766 Z79.891 Diagnostic /Lab: Order Presumptiv e UDT (necessary for rapid results) with Definitive confirmati on for chronic pain patient, to define treatment and reinforce therapeuti c compliance ; the following apply: [Presumpti ve UDT includes: (Amp, Letty, Charbel, Bup, THC, GILMAR, ETOH, Meth, Opi, Oxy )] *-Patient is receiving controlled medication s. *-Presumpt pat UDT to identify presence of illicit/no n-prescrib ed substance( s) - Confirm positive for ongoing safe prescribin g of controlled substances . *-Presumpt pat UDT to identify presence of licit/pres cribed substance( s)-Confirm unexpected results, identify specific drug(s) in large class and ensure appropriat e use of prescribed medication (s). *-Definiti ve UDT inadequate ly detected by Presumptiv e UDT (gabapenti n, pregabalin , tramadol, fentanyl, tapentadol and carisoprod ol). HP1 (CBC/Renal /Hepatic/G GT) CBC - ordered to monitor the effects of prescribed medication s. Renal/Hepa tic/GGT - ordered to monitor toxicity of renal hepatic function due to medication . Fibromyalgia 345962931 M 79.7 Continuous opioid dependence 863735442 F11.20 Autoimmune disease 91286 009 M35.9 Degenerati on of cervical intervertebral disc 25611984 M50.30 Disorder o f bone and articular cartilage 352618587 M24.10 Fibromyositis 44808257 M 79.7 Headache 51497363 R51.9 Malaise and fatigue 2717 78514 R53.81 Spondylosi s without myelopathy 21971169 M47.816 Spasm 10572037 R25.2 [id number] Faby LoydVishal Wood, DSP ENGINEER 2416 [facility] 2416 [place] [phone] 04/01/2023 07:21:42 04/05/2023 12:38:52 Long-term current use of opiate analgesic drug 4347536503 75767 Z79.891 Fibromyalgia 724201320 M 79.7 Continuous opioid dependence 800088902 F11.20 Autoimmune disease 27035 009 M35.9 Degenerati on of cervical intervertebral disc 09406818 M50.30 Disorder o f bone and articular cartilage 079651150 M24.10 Fibromyositis 40779505 M 79.7 Headache 50514650 R51.9 Malaise and fatigue 2717 32259 R53.81 Spondylosi s without myelopathy 61241381 M47.816 Spasm 47674645 R25.2 [id number] Chhaya Cox MD 2416 [place] [phone] 05/26/2023 15:41:10 05/27/2023 14:22:08 Fibromyalgia 196465550 M79.7 Fibromyositis 90323953 M 79.7 Spondylosi s without myelopathy 58127266 M47.816 Degenerati on of cervical intervertebral disc 74509096 M50.30 Headache 54394974 R51.9 Long-term current use of opiate analgesic drug 9077088108 14579 Z79.891 Diagnostic /Lab: Order Presumptiv e UDT (necessary for rapid results) with Definitive confirmati on for chronic pain patient, to define treatment and reinforce therapeuti c compliance ; the following apply: [Presumpti ve UDT includes: (Amp, Letty, Charbel, Bup, THC, GILMAR, ETOH, Meth, Opi, Oxy )] *-Patient is receiving controlled medication s. *-Presumpt pat UDT to identify presence of illicit/no n-prescrib ed substance( s) - Confirm positive for ongoing safe prescribin g of controlled substances . *-Presumpt pat UDT to identify presence of licit/pres cribed substance( s)-Confirm unexpected results, identify specific drug(s) in large class and ensure appropriat e use of prescribed medication (s). *-Definiti ve UDT inadequate ly detected by Presumptiv e UDT (gabapenti n, pregabalin , tramadol, fentanyl, tapentadol and carisoprod ol). [id number] Chhaya Cox MD [facility] [place] [address] [place] [address] 2023 16:56:23 08/06/2023 11:19:50 Fibromyalgia 071300541 M79.7 Fibromyositis 08122465 M 79.7 Spondylosi s without myelopathy 89025054 M47.816 Degenerati on of cervical intervertebral disc 22270132 M50.30 Headache 10719308 R51.9 Long-term current use of opiate analgesic drug 2998598143 26384 Z79.891 HP1 (CBC/Renal /Hepatic/G GT) CBC - ordered to monitor the effects of prescribed medication s. Renal/Hepa tic/GGT - ordered to monitor toxicity of renal hepatic function due to medication .Diagnosti c/Lab: Order Presumptiv e UDT (necessary for rapid results) with Definitive confirmati on for chronic pain patient, to define treatment and reinforce therapeuti c compliance ; the following apply: [Presumpti ve UDT includes: (Amp, Letty, Charbel, Bup, THC, GILMAR, ETOH, Meth, Opi, Oxy )] *-Patient is receiving controlled medication s. *-Presumpt pat UDT to identify presence of illicit/no n-prescrib ed substance( s) - Confirm positive for ongoing safe prescribin g of controlled substances . *-Presumpt pat UDT to identify presence of licit/pres cribed substance( s)-Confirm unexpected results, identify specific drug(s) in large class and ensure appropriat e use of prescribed medication (s). *-Definiti ve UDT inadequate ly detected by Presumptiv e UDT (gabapenti n, pregabalin , tramadol, fentanyl, tapentadol and carisoprod ol). [id number] Faby Wood, DSP ENGINEER 2416 [facility] 2416 [place] [address] 10/06/2023 14:52:43 10/06/2023 15:41:19 Long-term current use of opiate analgesic drug 9836169203 50158 Z79.891 Fibromyalgia 289842253 M 79.7 Continuous opioid dependence 975239527 F11.20 Autoimmune disease 30385 009 M35.9 Degenerati on of cervical intervertebral disc 11734151 M50.30 Disorder o f bone and articular cartilage 144378842 M24.10 Fibromyositis 27306715 M 79.7 Headache 07890838 R51.9 Malaise and fatigue 2717 16092 R53.81 Spondylosi s without myelopathy 18297850 M47.816 Spasm 35797615 R25.2 [id number] Faby Paulsonnicholas, DSP ENGINEER [address] [place] [address] [place] [address] 12/08/2023 13:49:28 12/08/2023 14:35:30 Long-term current use of opiate analgesic drug 0515934079 33310 Z79.891 Diagnostic /Lab: Order Presumptiv e UDT (necessary for rapid results) with Definitive confirmati on for chronic pain patient, to define treatment and reinforce therapeuti c compliance ; the following apply: [Presumpti ve UDT includes: (Amp, Letty, Charbel, Bup, THC, GILMAR, ETOH, Meth, Opi, Oxy )] *-Patient is receiving controlled medication s. *-Presumpt pat UDT to identify presence of illicit/no n-prescrib ed substance( s) - Confirm positive for ongoing safe prescribin g of controlled substances . *-Presumpt pat UDT to identify presence of licit/pres cribed substance( s)-Confirm unexpected results, identify specific drug(s) in large class and ensure appropriat e use of prescribed medication (s). *-Definiti ve UDT inadequate ly detected by Presumptiv e UDT (gabapenti n, pregabalin , tramadol, fentanyl, tapentadol and carisoprod ol). Fibromyalgia M 79.7 Continuous opioid dependence 040361242 F11.20 Autoimmune disease 69449 009 M35.9 Degenerati on of cervical intervertebral disc 49294282 M50.30 Disorder o f bone and articular cartilage 642163434 M24.10 Fibromyositis 48293556 M 79.7 Headache 61180431 R51.9 Malaise and fatigue 2717 31649 R53.81 Spondylosi s without myelopathy 49259309 M47.816 Spasm 20282338 R25.2 [id number] Chhaya Cox MD [facility] [address] 02/04/2024 14:09:29 02/09/2024 12:52:40 Fibromyalgia 055829582 M79.7 Fibromyositis 98211334 M 79.7 Spondylosi s without myelopathy 34121770 M47.816 Degenerati on of cervical intervertebral disc 37781014 M50.30 Headache 11558858 R51.9 [id number] Faby Wood, SHAWN [address] [place], [place] [address] 04/12/2024 13:56:36 04/12/2024 15:13:26 Long-term current use of opiate analgesic drug 9418662434 88484 Z79.891 *-D efinitive UDT inadequate ly detected by Presumptiv e UDT (gabapenti n, pregabalin , tramadol, fentanyl, tapentadol and carisoprod ol).Diagno stic/Lab: Order Presumptiv e UDT (necessary for rapid results) with Definitive confirmati on for chronic pain patient, to define treatment and reinforce therapeuti c compliance ; the following apply:[Pre sumptive UDT includes: (Amp, Letty, Charbel, Bup, THC, GILMAR, ETOH, Meth, Opi, Oxy )]*-Patien t is receiving controlled medication s.*-Presum ptive UDT to identify presence of illicit/no n-prescrib ed substance( s) - Confirm positive for ongoing safe prescribin g of controlled substances .*-Presump tive UDT to identify presence of licit/pres cribed substance( s)-Confirm unexpected results, identify specific drug(s) in large class and ensure appropriat e use of prescribed medication (s). _*-Definit pat UDT inadequate ly detected by Presumptiv e UDT (gabapenti n, pregabalin , tramadol, fentanyl, tapentadol and carisoprod ol). Fibromyalgia 791470960 M 79.7 Continuous opioid dependence 612263918 F11.20 Autoimmune disease 63949 009 M35.9 Degenerati on of cervical intervertebral disc 61677682 M50.30 Disorder o f bone and articular cartilage 184805663 M24.10 Fibromyositis 92056214 M 79.7 Headache 10385589 R51.9 Malaise and fatigue 2717 91384 R53.81 Spondylosi s without myelopathy 58737995 M47.816 Spasm 04827746 R25.2 Health Concerns Section Related Observation LastModified by Organization Detai ls LastModified Time None Recorded Concern Status LastModified by Organization Details LastModified Time None Recorded Advance Directives Directive None Recorded Payers Encounter Date Sequence Insurance Name Policy Number Policy Nguyen Covered Member ID Nguyen Member ID Guarantor Name 2023 1 [place] Maria Del Rosario Florian [id number] 2 Maria Del Rosario Florian 10/06/2023 1 [place] Maria Del Rosario Florian [id number] 2 Maria Del Rosario Florian 12/08/2023 1 [place] Maria Del Rosario Florian [id number] 2 Maria Del Rosario Anival 02/04/2024 1 [place] Maria Del Rosario Florian [id number] 2 Maria Del Rosario Anival 04/12/2024 1 [place] Maria Del Rosario Florian [id number] 2 Maria Del Rosario Florian Notes Date Note Type Note Provider Name and Address Organization Details Recorded Time 4 text/html Pt is being seen today for a regular office visit. Patient states there are no new issues or concerns. Patient states they are happy with current medicine regimen. We will continue medicines at same dose as previously prescribed. Pt will be seen back in two months for a regular checkup. Global Risk Assessment Score:High Risk.High Risk Assessment: Multiple Opioid Medication Medication Regimen (>2 controlled substances) High Doses of Opioids to Manage Pain (>30 mg Morphine or equivalent) Abnormal UDMs (including presence of licit/illicit meds not prescribed Abnormal PC/DS Abnormal PDMP Physical symptoms suggesting substance abuse-misuse at OV's Behavioral/psychological symptoms suggesting substane abuse-misuse at OV's History of legal or illegal substane use including treatments for abuse or dependence Personal History of alcoholism, illicit drug abuse/diversion, ALC abuse/physical abuse Moderate Risk Assessment: Multiple Pain or Medical Conditions (i.e., back, head and fibromyalgia) Multiple Physicians treating patients' conditions History of early refills History of previous pain clinics History of legal or illegal substance use by first degree relatives, including treatments for abuse or dependence History/Diagnosis of Mental Health/Psychiatric illnesses that may impact the patient's treatment with controlled substances History/Diagnosis of Mental Health/Psychiatric illnesses that may impact the patient's treatment with controlled substances Non [place] resident Difficulty in contacting the patient ( i.e. multiple residences, multiple phone numbers/no phone, frequent out of town travel/[id number] work) ORT Score:Risk Score: Date of ORT: . Lab work reviewed:UDS of 05/26/2023 reviewed and is appropriate. DEUCE (prescription drug monitoring report):As of 2023 reviewed and is appropriate Last fill 07/15/2023 She is currently taking MS Contin 15mg TID and Baclofen 5mg TID. Fill dates: 08/13/23 & 09/13/23 05/26/23 CHHAYA COX MD She states her pain is about the same since last visit. Since last visit she has seen her PCP who did some basic bloodwork because she's been having hot flashes lately. She had a hysterectomy about 18 years ago. The bloodwork was normal so he is referring her to endocrinology. She would like to discuss decreasing her baclofen. She says the 10mg is a little too strong & would prefer to wean down to 5mg. Current meds:MS CONTIN 15MG TID LAST FILLED: 05/12/23BACLOFEN 10MG TIDCELEBREX 100MG BID - stopped d/t SEs Medication changes:d/c BACLOFEN 10MG TID, change to BACLOFEN 5MG TID Pt will f/u in 2 months. 04/01/23 FABY WOOD APRN Patient verbally consented to participate in a telemedicine visit today via real time audio & video. Patient understood that by participating in a telemedicine visit that their cellular and data minutes will be used, that the session was not being recorded and that their personal health information is protected. The patient was seen via telemedicine visit from my office location today; patient location: Patient's home. chief Complaint: LBP, fibro, and headaches Patient is here for a follow up for chronic LBP, fibro, and headaches . Patient states that their pain is the same from the last OV. She is having a fibro flare. Her is in the hospital as well. Patient states that their medication is helping as it use to. Patient is still independent with ADL's. Patient is happy with current medication regimen and denies any SE to rx. Patient is not interested in IP treatment at this time.She states that the name brand voltaren gel gives her great relief of her pain, but she cannot use the generic brand due to a fragrance, which causes her to have migraines Quality: aching that can be throbbing and stabbing at times.Severity: Her headaches are getting worseTiming: constantAggravating Factors: everythingAlleviating Factors: medications give partial relief 05/01/21 CHHAYA COX MD Chief Complaints:JACOB's, global pain. HPI:Ms. Florian Maria Del Rosario, a 60 year 8 month 4 week old Other, female patient is in the office today for a follow up office visit Pt ays she is allergic to anything manmade and that her pain keeps her in the house most days; activity also triggers migraines.long history.below note is same for today. Maria Del Rosario Medina, a 60 year 8 month 4 week old, female patient is in the office today for extended office visit. Dr. Cox extended office visit May 01, 2021:I've seen this patient a couple times over the last few years. She has been with our clinic over three years. She has multiple symptoms, problems with migraine headache refractory to all other options besides, and multiple drug hours. Her headaches have been well- controlled on 30 mg of long-acting morphine at night and 15 mg in the morning. She was previously seeing Dr. Rowe, our headache specialist who is now gone from the practice. At some point in the last 12 months her medication was changed from a 30 day supply to a 45 day supply, from what it sounds like it was upon her request because her was very ill and in and out of the hospital a lot. We will change that back to the 30 day.Also she has requested that we discontinue her muscle relaxer because it does not work. She has requested that we prescribe herbal Volteran gel as namebrand only because fragrance of the generic brand gives her headaches. I explained that we may or may not be able to accommodate that. She can purchase it OTC name brand. When my nurse Janette explained to her about her filled date for this month, (which would take place tomorrow), the patient stated I will be ill tomorrow. Janette explained she had 72 hours to miner pick her prescribed medicine which has been adjusted as she requested back to the 30 day supply of 15 mg in the a.m. and 30 in the p.m. Headaches and global Fibromyalgia pain is unchanged from last ov and relatively stable with current Rx. She feels Rx allows her to be active without SE's. She has been denied coverage of skelaxin and Voltaren and would like us to prior Auth. She continues to wear a mask over her nose and mouth and sunglasses due to being light sensitive and having low immunities. She admits to not leaving her home unless she has to. She describes her pain as constant aching that can be throbbing and stabbing at times. Cold weather tends to make her pain increase. She is independent with ADL's. 12/28/[id number] with a known long-standing history of headaches, migraine headaches, fibromyalgia, Gerd, hypothyroidism, for the last 30 years. Failed multiple treatments, prophylactic drugs, dizziness, weakness, anxiety, depression, presented to clinic with complaints of headaches.Patient had acupuncture previously. Does not want any kind of interventions.Could not tolerate Imitrex, sumatriptan due to palpitations.Patient has multiple drug allergies including steroids.Patient is allergic to Ambien, ciprofloxacin, Cymbalta, Lexapro, all migraine medications, sulfa, trazodone and steroids Chhaya Cox MD [address], [place], [address], [facility] 08/20/2023 18:14:34 4 text/html chief Complaint: LBP, fibro, and headaches Patient is here for a follow up for chronic LBP, fibro, and headaches . Patient states that their pain is the same from the last OV. She is having a fibro flare. Her is in the hospital as well. Patient states that their medication is helping as it use to. Patient is still independent with ADL's. Patient is happy with current medication regimen and denies any SE to rx. Patient is not interested in IP treatment at this time.She states that the name brand voltaren gel gives her great relief of her pain, but she cannot use the generic brand due to a fragrance, which causes her to have migraines Quality: aching that can be throbbing and stabbing at times.Severity: Her headaches are getting worseTiming: constantAggravating Factors: everythingAlleviating Factors: medications give partial relief Faby Wood, SHAWN [address], [place], [address], [facility] 11/15/2023 12:11:00 4 text/html chief Complaint: LBP, fibro, and headaches Patient is here for a follow up for chronic LBP, fibro, and headaches . Patient states that their pain is the same from the last OV. She is having a fibro flare. Her is in the hospital as well. Patient states that their medication is helping as it use to. Patient is still independent with ADL's. Patient is happy with current medication regimen and denies any SE to rx. Patient is not interested in IP treatment at this time.She states that the name brand voltaren gel gives her great relief of her pain, but she cannot use the generic brand due to a fragrance, which causes her to have migraines Quality: aching that can be throbbing and stabbing at times.Severity: Her headaches are getting worseTiming: constantAggravating Factors: everythingAlleviating Factors: medications give partial relief Faby Wood APRN [address] [facility], [place], [address], [facility] 12/27/2023 17:40:26 4 text/html 02/04/24 CHHAYA COX MD Current meds:MS CONTIN ER 15MG TID LAST FILLED: 01/18/24BACLOFEN 5MG TID (gets 90 day supply) Fill dates: 02/16 & 03/18 12/08/23 FABY WOOD APRN chief Complaint: LBP, fibro, and headaches Patient is here for a follow up for chronic LBP, fibro, and headaches . Patient states that their pain is the same from the last OV. She is having a fibro flare. Her is in the hospital as well. Patient states that their medication is helping as it use to. Patient is still independent with ADL's. Patient is happy with current medication regimen and denies any SE to rx. Patient is not interested in IP treatment at this time.She states that the name brand voltaren gel gives her great relief of her pain, but she cannot use the generic brand due to a fragrance, which causes her to have migraines Quality: aching that can be throbbing and stabbing at times.Severity: Her headaches are getting worseTiming: constantAggravating Factors: everythingAlleviating Factors: medications give partial relief 08/04/23 CHHAYA COX MD Pt is being seen today for a regular office visit. Patient states there are no new issues or concerns. Patient states they are happy with current medicine regimen. We will continue medicines at same dose as previously prescribed. Pt will be seen back in two months for a regular checkup. Global Risk Assessment Score:High Risk.High Risk Assessment: Multiple Opioid Medication Medication Regimen (>2 controlled substances) High Doses of Opioids to Manage Pain (>30 mg Morphine or equivalent) Abnormal UDMs (including presence of licit/illicit meds not prescribed Abnormal PC/DS Abnormal PDMP Physical symptoms suggesting substance abuse-misuse at OV's Behavioral/psychological symptoms suggesting substane abuse-misuse at OV's History of legal or illegal substane use including treatments for abuse or dependence Personal History of alcoholism, illicit drug abuse/diversion, ALC abuse/physical abuse Moderate Risk Assessment: Multiple Pain or Medical Conditions (i.e., back, head and fibromyalgia) Multiple Physicians treating patients' conditions History of early refills History of previous pain clinics History of legal or illegal substance use by first degree relatives, including treatments for abuse or dependence History/Diagnosis of Mental Health/Psychiatric illnesses that may impact the patient's treatment with controlled substances History/Diagnosis of Mental Health/Psychiatric illnesses that may impact the patient's treatment with controlled substances Non [place] resident Difficulty in contacting the patient ( i.e. multiple residences, multiple phone numbers/no phone, frequent out of town travel/jjp-sr-edogo work) ORT Score:Risk Score: Date of ORT: . Lab work reviewed:UDS of 05/26/2023 reviewed and is appropriate. DEUCE (prescription drug monitoring report):As of 2023 reviewed and is appropriate Last fill 07/15/2023 She is currently taking MS Contin 15mg TID and Baclofen 5mg TID. Fill dates: 08/13/23 & 09/13/23 05/26/23 CHHAYA COX MD She states her pain is about the same since last visit. Since last visit she has seen her PCP who did some basic bloodwork because she's been having hot flashes lately. She had a hysterectomy about 18 years ago. The bloodwork was normal so he is referring her to endocrinology. She would like to discuss decreasing her baclofen. She says the 10mg is a little too strong & would prefer to wean down to 5mg. Current meds:MS CONTIN 15MG TID LAST FILLED: 05/12/23BACLOFEN 10MG TIDCELEBREX 100MG BID - stopped d/t SEs Medication changes:d/c BACLOFEN 10MG TID, change to BACLOFEN 5MG TID Pt will f/u in 2 months. 04/01/23 FABY WOOD APRN Patient verbally consented to participate in a telemedicine visit today via real time audio & video. Patient understood that by participating in a telemedicine visit that their cellular and data minutes will be used, that the session was not being recorded and that their personal health information is protected. The patient was seen via telemedicine visit from my office location today; patient location: Patient's home. chief Complaint: LBP, fibro, and headaches Patient is here for a follow up for chronic LBP, fibro, and headaches . Patient states that their pain is the same from the last OV. She is having a fibro flare. Her is in the hospital as well. Patient states that their medication is helping as it use to. Patient is still independent with ADL's. Patient is happy with current medication regimen and denies any SE to rx. Patient is not interested in IP treatment at this time.She states that the name brand voltaren gel gives her great relief of her pain, but she cannot use the generic brand due to a fragrance, which causes her to have migraines Quality: aching that can be throbbing and stabbing at times.Severity: Her headaches are getting worseTiming: constantAggravating Factors: everythingAlleviating Factors: medications give partial relief 05/01/21 CHHAYA COX MD Chief Complaints:JACOB's, global pain. HPI:Maria Del Rosario Medina, a 60 year 8 month 4 week old Other, female patient is in the office today for a follow up office visit Pt ays she is allergic to anything manmade and that her pain keeps her in the house most days; activity also triggers migraines.long history.below note is same for today. Maria Del Rosario Medina, a 60 year 8 month 4 week old, female patient is in the office today for extended office visit. Dr. Cox extended office visit May 01, 2021:I've seen this patient a couple times over the last few years. She has been with our clinic over three years. She has multiple symptoms, problems with migraine headache refractory to all other options besides, and multiple drug hours. Her headaches have been well- controlled on 30 mg of long-acting morphine at night and 15 mg in the morning. She was previously seeing Dr. Rowe, our headache specialist who is now gone from the practice. At some point in the last 12 months her medication was changed from a 30 day supply to a 45 day supply, from what it sounds like it was upon her request because her was very ill and in and out of the hospital a lot. We will change that back to the 30 day.Also she has requested that we discontinue her muscle relaxer because it does not work. She has requested that we prescribe herbal Volteran gel as namebrand only because fragrance of the generic brand gives her headaches. I explained that we may or may not be able to accommodate that. She can purchase it OTC name brand. When my nurse Janette explained to her about her filled date for this month, (which would take place tomorrow), the patient stated I will be ill tomorrow. Janette explained she had 72 hours to miner pick her prescribed medicine which has been adjusted as she requested back to the 30 day supply of 15 mg in the a.m. and 30 in the p.m. Headaches and global Fibromyalgia pain is unchanged from last ov and relatively stable with current Rx. She feels Rx allows her to be active without SE's. She has been denied coverage of skelaxin and Voltaren and would like us to prior Auth. She continues to wear a mask over her nose and mouth and sunglasses due to being light sensitive and having low immunities. She admits to not leaving her home unless she has to. She describes her pain as constant aching that can be throbbing and stabbing at times. Cold weather tends to make her pain increase. She is independent with ADL's. 12/28/[id number] with a known long-standing history of headaches, migraine headaches, fibromyalgia, Gerd, hypothyroidism, for the last 30 years. Failed multiple treatments, prophylactic drugs, dizziness, weakness, anxiety, depression, presented to clinic with complaints of headaches.Patient had acupuncture previously. Does not want any kind of interventions.Could not tolerate Imitrex, sumatriptan due to palpitations.Patient has multiple drug allergies including steroids.Patient is allergic to Ambien, ciprofloxacin, Cymbalta, Lexapro, all migraine medications, sulfa, trazodone and steroids Chhaya Cox MD [address] [facility], [place], [address], [facility] 02/09/2024 10:10:07 5 text/html chief Complaint: LBP, fibro, and headaches Patient is here for a follow up for chronic LBP, fibro, and headaches . Patient states that their pain is the same from the last OV. She is upset today because she hasn't been able to get her morphine. She is having more migraines due to this. Patient states that their medication is helping as it use to. Patient is still independent with ADL's. Patient is happy with current medication regimen and denies any SE to rx. Patient is not interested in IP treatment at this time.She states that the name brand voltaren gel gives her great relief of her pain, but she cannot use the generic brand due to a fragrance, which causes her to have migraines Quality: aching that can be throbbing and stabbing at times.Severity: Her headaches are getting worseTiming: constantAggravating Factors: everythingAlleviating Factors: medications give partial relief Faby Wood, DSP ENGINEER [address] [facility], [place], [address], [facility] 04/23/2024 21:43:32 OBGyn Episode No OBEpisode recorded.
== END 2024-08-03 23:59 | disposition home or self-care (01) ==
LOC: LAB.DROPOF 08-04 15:05
PROVIDERS: PCP Internal Medicine; Visit Provider Internal Medicine
DX: I10 Essential (primary) hypertension (principal); E78.2 Mixed hyperlipidemia; I25.118 Atherosclerotic heart disease of native coronary artery with other forms of angina pectoris; E03.9 Hypothyroidism, unspecified
CPT/HCPCS: 80053; 80061; 84443; 85025

== ENCOUNTER 2024-11-01 16:09 | Outpatient (CLI) | payer MEDICARE, OTHER, SELFPAY ==
--- OUTSIDE RECORDS SUMMARY | 2024-11-01 14:37 | XMS_ITS | Continuity of Care Document ---
Author Name [facility] Organization [facility] Care Team Providers Care Outside Laborer Name Role Phone [facility] Unavailable Unavailable Social History Combined list of available smoking, tobacco, and other social history from Department of Defense and Veterans Affairs facilities. Social History Type Response Date Comment Sourc e This section is an empty social history section. [facility]
--- OUTSIDE RECORDS SUMMARY | 2024-11-01 16:12 | XMS_ITS | Clinical Summary ---
Author Organization Healthcare Address [address] [place] [address] Care Team Providers Care Custom Leather Products Maker Name Role Phone Kaveh Jones MD Primary Care Provider [phone] Family History Medical History Relation Name Comments [...] of Treatment Not on file Care Teams Custom Leather Products Maker Relationship Specialty Start Date End Date Kaveh Jones MD [address] [facility] [address] [place] [address] PCP - General 07/12/20
--- NOTE | 2024-11-01 16:13 | XR_ITS ---
FINAL REPORT CLINICAL HISTORY: Chronic lumbar back pain COMPARISON: None FINDINGS: LUMBOSACRAL SPINE SERIES Five views of the lumbosacral spine were obtained. There is no fracture present. There is no malalignment. There is moderate facet sclerosis in the lower lumbar spine. Minimal anterior osteophyte formation is noted at L2-3 and L3-4. IMPRESSION: Minimal degenerative/chronic change without acute process. Reviewed, Interpreted and Dictated by Tho Lemon MD Transcribed by Janette Rosario Authenticated and [facility]
== END 2024-11-01 23:59 | disposition home or self-care (01) ==
LOC: RAD 16:10
PROVIDERS: PCP Internal Medicine; Visit Provider Internal Medicine
DX: M47.816 Spondylosis without myelopathy or radiculopathy, lumbar region (principal); M47.817 Spondylosis without myelopathy or radiculopathy, lumbosacral region
CPT/HCPCS: 72110

== ENCOUNTER 2024-12-26 15:53 | Outpatient (CLI) | payer MEDICARE, OTHER, SELFPAY ==
--- OUTSIDE RECORDS SUMMARY | 2024-12-26 15:55 | XMS_ITS | Clinical Summary ---
Author Organization Healthcare Address [address] [place] [address] Care Team Providers Care Wallpaper Inspector And Shipper Name Role Phone Kaveh Jones MD Primary Care Provider [phone] Family History Medical History Relation Name Comments [...] of Treatment Not on file Care Teams Wallpaper Inspector And Shipper Relationship Specialty Start Date End Date Kaveh Jones MD [address] [facility] [address] [place] [address] PCP - General 07/12/20
--- NOTE | 2024-12-26 16:00 | MM_ITS ---
PROCEDURE INFORMATION: Exam: MG Bilateral Screening 3D Mammography Exam date and time: 12/26/2024 3:56 PM Age: 64 years old Clinical indication: Screening examination. TECHNIQUE: Imaging protocol: Bilateral Screening tomosynthesis and 2D mammography including computer-aided detection (CAD) when performed. COMPARISON: 1. MG MM DIG SCREENING MAMM BI W/CAD 09/22/2023 3:36 PM 2. MG MM DIG SCREENING MAMM BI W/CAD 08/12/2022 10:48 AM FINDINGS: MAMMOGRAPHY: Breast composition: There are scattered areas of fibroglandular density. Mass: None. Architectural distortion: None. Calcifications: No suspicious calcifications. Asymmetric density: None. Skin thickening: None. Axillary adenopathy: None. IMPRESSION: No mammographic evidence of malignancy. Annual screening is recommended unless otherwise clinically indicated. ASSESSMENT: BI-RADS Category 1: Negative.
== END 2024-12-26 23:59 | disposition home or self-care (01) ==
LOC: RAD 15:53
PROVIDERS: PCP Internal Medicine; Visit Provider Internal Medicine
DX: Z12.31 Encounter for screening mammogram for malignant neoplasm of breast (principal); R92.323 Mammographic fibroglandular density, bilateral breasts
CPT/HCPCS: 77063; 77067